=== PATIENT | female | born 1935 | race Caucasian/White ===

== ENCOUNTER 2016-03-27 10:22 | Emergency (ER) | payer OTHER ==
[~2016-03-27 10:22] MED LIST: ALLO100T PO; CALC.25 PO; D31000TA PO; FURO1TAB93 PO; GABA300 PO; HYDR25TA35 PO; LEVO112T2 PO; LISI40TA PO; METO2.5T7 PO; MULT-65 PO; TRAM50 PO; TYLE500T PO; VITA10002 PO; ZOCO40TA PO
[2016-03-27 10:30] VITALS: BP 141/81; PULSE 88; RESP 17; TEMP 97.9; O2SAT 93
[2016-03-27] MEDS ORDERED: DOXY100C PO (10:37)
[2016-03-27] MEDS ORDERED: SIMV40TA PO (10:37)
[2016-03-27] MEDS ORDERED: LEVO112T2 PO (10:37)
[2016-03-27] MEDS ORDERED: TRAM50TA PO (10:37)
[2016-03-27] MEDS ORDERED: FURO1TAB60 PO (10:38)
[2016-03-27] MEDS ORDERED: METO2.5T PO (10:38)
[2016-03-27] MEDS ORDERED: HYDR25TA35 PO (10:38)
[2016-03-27] MEDS ORDERED: GABA300C5 PO (10:38)
[2016-03-27] MEDS ORDERED: AMLO5TAB2 PO (10:38)
[2016-03-27] MEDS ORDERED: ALLO100T PO (10:38)
[2016-03-27] MEDS ORDERED: DEXAMETHASONE SOD PHOS 4 MG/ML VIAL IV PUSH ONE (11:00)
[2016-03-27] MEDS ORDERED: ONDANSETRON HCL 4 MG/2 ML VIAL IV PUSH ONE (11:00)
[2016-03-27] MEDS ORDERED: MORPHINE SULFATE 4 MG/ML INJ IV PUSH ONE ×2 (11:00→13:15)
--- NOTE | 2016-03-27 11:05 | PD ---
HPI Chief Complaint: Pain: Acute or Chronic Time Seen by Provider: 10:50 Travel History International Travel<30 days: No Contact w/Intl Traveler<30days: No Traveled to known affect area: No History of Present Illness HPI The patient is a 80-year-old female who presents to the emergency department for low back pain and pelvis pain after falling. 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 The patient states she fell and landed on her left side. The patient states she was able to get up to her knees, however, was unable to get up and ambulate. Therefore, the fire department was called and they help get the patient up off of the floor. The patient states that she has had some low back pain located over the sacroiliac bilaterally that radiates into the pelvic regions bilaterally after her fall. She also complains of pain that radiates down the right leg to the right knee. She does note intermittent numbness and tingling of the right leg from the hip to the knee which is intermittent. The pain is worse with standing upright and weightbearing, alleviated at rest, but today she states she was unable to ambulate. She does note previous history of surgery on the back by Dr. Cohn. The patient's symptoms are moderate, exacerbated after falling, and minimally alleviated at rest. She denies any head trauma, neck pain, chest pain , short of breath, nausea, vomiting, or abdominal pain. PFSH Past Medical History Cancer: Yes (LYMPH NODES NECK, THYROID) Cardiovascular Problems: No High Cholesterol: Yes Diabetes: No Diminished Hearing: Yes (LEFT EAR) Endocrine: No Gastrointestinal Disorders: Yes (REFLUX) Genitourinary: No Hepatitis: No Hiatal Hernia: Yes Hypertension: Yes Immune Disorder: No Musculoskeletal: Yes (ARTHRITIS) Neurologic: No Psychiatric: No Reproductive: No Respiratory: Yes (COPD) Thyroid Disease: Yes (CANCER) Tetanus Vaccination: < 5 Years Influenza Vaccination: Yes Menopausal: Yes : 4 Para: 4 Miscarriage: 0 : 0 Tubal Ligation: Yes Past Surgical History AICD: No Body Medical Devices: CAGE IN BACK Gynecologic Surgery: Yes (HYSTERECTOMY,) Hysterectomy: Yes Joint Replacement: Yes (RIGHT HIP) Oral Surgery: Yes (THYROIDECTOMY, TONSILS,) Pacemaker: No Tonsillectomy: Yes Other Surgery: Yes ("1985,thyroid and lymph glands removed") Social History Alcohol Use: Yes (2 OZ PER DAY) Tobacco Use: No (quit 2006,was smoking one pack of cigarettes a day) Substance Use: No Allergies-Medications (Allergen,Severity, Reaction): Coded Allergies: Advil (Unverified Allergy, Severe, DIZZYNESS, 03/27/16) Penicillin (Verified Allergy, Severe, HIVES, 03/27/16) Aleve (Verified Adverse Reaction, Severe, DIZZY, 03/27/16) Reported Meds & Prescriptions Reported Meds & Active Scripts Active Reported Hydralazine (Hydralazine HCl) 25 Mg Tab 25 Mg PO BID Take with a meal Metolazone 2.5 Mg Tab 2.5 Mg PO ,,, Gabapentin 300 Mg Cap 300 Mg PO TID Allopurinol 100 Mg Tab 100 Mg PO DAILY Amlodipine (Amlodipine Besylate) 5 Mg Tab 5 Mg PO DAILY Lasix (Furosemide) 40 Mg Tab 40 Mg PO DAILY Simvastatin 40 Mg Tab 40 Mg PO HS Levothyroxine (Levothyroxine Sodium) 112 Mcg Tab 112 Mcg PO DAILY Tramadol (Tramadol HCl) 50 Mg Tab 100 Mg PO Q8HR PRN Doxycycline Hyclate 100 Mg Cap 100 Mg PO BID Review of Systems Except as stated in HPI: all other systems reviewed are Neg HENT: No: Headaches, Neck Pain Cardiovascular: No: Chest Pain or Discomfort Respiratory: No: Shortness of Breath Gastrointestinal: No: Nausea, Vomiting, Abdominal Pain Genitourinary: No: Dysuria Musculoskeletal: Positive: Pain Neurologic: Positive: Paresthesia, Sensory Disturbance, No: Headache, Change in Mentation Physical Exam Narrative GENERAL: Awake, alert, nontoxic-appearing 80-year-old female appears her stated age and is in no acute respiratory distress. SKIN: Warm and dry. HEAD: Atraumatic. Normocephalic. EYES: No injection or drainage. ENT: No nasal bleeding or discharge. Mucous membranes pink and moist. NECK: Trachea midline. No JVD. CARDIOVASCULAR: Regular rate and rhythm. No murmur appreciated. RESPIRATORY: No accessory muscle use. Clear to auscultation. Breath sounds equal bilaterally. GASTROINTESTINAL: Abdomen soft, non-tender, nondistended. Obese, no rebound tenderness. Back: Well-healed scar. Tenderness of the sacroiliac regions bilaterally. MUSCULOSKELETAL: Bilateral lower extremity pitting edema with mild erythema. Superficial ulcerations noted. Positive distal pulses. Plantar flexion dorsiflexion are 5/5 bilaterally. Extension of the knees is 5/5. Flexion of the hips bilaterals 5/5. NEUROLOGICAL: Awake and alert. No obvious cranial nerve deficits. Motor grossly within normal limits. Normal speech. Sensation is intact to lower extremity is bilateral soft touch. PSYCHIATRIC: Appropriate mood and affect; insight and judgment normal. Data Data Last Documented VS Vital Signs Date Time Temp Pulse Resp B/P Pulse Ox O2 Delivery O2 Flow Rate FiO2 03/27/16 10:30 97.9 88 17 141/[address] Lumb Spine W/O Contrast (03/27/16 ) Ct Pelvis W/O Iv Contrast (03/27/16 ) Complete Blood Count With Diff (03/27/16 10:59) Basic Metabolic Panel (Bmp) (03/27/16 10:59) Urinalysis - C+S If Indicated (03/27/16 10:59) Morphine Inj (Morphine Inj) (03/27/16 11:00) Ondansetron Inj (Zofran Inj) (03/27/16 11:00) Dexamethasone Inj (Decadron Inj) (03/27/16 11:00) Morphine Inj (Morphine Inj) (03/27/16 13:15) Labs Laboratory Tests Test 03/27/16 03/27/16 11:23 11:35 White Blood Count 9.3 TH/MM3 Red Blood Count 4.36 MIL/MM3 Hemoglobin 13.2 GM/DL Hematocrit 39.5 % Mean Corpuscular Volume 90.5 FL Mean Corpuscular Hemoglobin 30.3 PG Mean Corpuscular Hemoglobin 33.5 % Concent Red Cell Distribution Width 16.9 % Platelet Count 182 TH/MM3 Mean Platelet Volume 7.5 FL Neutrophils (%) (Auto) 75.8 % Lymphocytes (%) (Auto) 11.5 % Monocytes (%) (Auto) 7.3 % Eosinophils (%) (Auto) 0.5 % Basophils (%) (Auto) 4.9 % Neutrophils # (Auto) 7.0 TH/MM3 Lymphocytes # (Auto) 1.1 TH/MM3 Monocytes # (Auto) 0.7 TH/MM3 Eosinophils # (Auto) 0.0 TH/MM3 Basophils # (Auto) 0.5 TH/MM3 CBC Comment DIFF FINAL Differential Comment Sodium Level 133 MEQ/L Potassium Level 3.0 MEQ/L Chloride Level 86 MEQ/L Carbon Dioxide Level 37.0 MEQ/L Anion Gap 10 MEQ/L Blood Urea Nitrogen 41 MG/DL Creatinine 1.00 MG/DL Estimat Glomerular Filtration 53 ML/MIN Rate Random Glucose 110 MG/DL Calcium Level 9.2 MG/DL Urine Collection Type CLEAN CATCH Urine Color YELLOW Urine Turbidity CLEAR Urine pH 6.5 Urine Specific [place] 1.012 Urine Protein NEG mg/dL Urine Glucose (UA) NEG mg/dL Urine Ketones NEG mg/dL Urine Occult Blood TRACE Urine Nitrite NEG Urine Bilirubin NEG Urine Leukocyte Esterase SMALL Urine RBC 0-3 /hpf Urine WBC 3-5 /hpf Urine Squamous Epithelial 0-5 /hpf Cells Microscopic Urinalysis Comment CULT NOT INDICATED MDM Medical Decision Making Medical Screen Exam Complete: Yes Emergency Medical Condition: Yes Medical Record Reviewed: Yes Interpretation(s) CT the pelvis reveals no fractures are seen CT of the lumbar spine reveals degenerative changes and postsurgical changes with no evidence for fracture. Differential Diagnosis Differential diagnosis includes mechanical fall, fracture, contusion, hematoma, dislocation, pelvic rami fracture, inability to ambulate, chronic leg ulcer. Narrative Course A culture was obtained from leg ulcer at the patient's request, however, she is currently on doxycycline. CT of the lumbar spine and pelvis was ordered to evaluate for underlying fracture with previous surgery performed. 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 CT of the lumbar spine and pelvis are negative for fracture. I had a discussion with the patient , she would prefer to go home if possible because she takes care of her . Therefore, an attempt to ambulate the patient in the emergency department was performed as she states her pain was down to a 2/10 after the morphine. The patient was able to ambulate with the use of a walker, which she has at home. The pain did increase, therefore, she was administered another dose of morphine. The patient has a pain interventionalist, Dr. Bond, and an orthopedist, Dr. Cohn. The patient will be discharged home on Vicodin and Norflex. She is advised to follow-up with her orthopedist and pain interventional was. Return if symptoms worsen or progress. Diagnosis Primary Impression: Chronic back pain Qualified Code: M54.41 - Chronic bilateral low back pain with right-sided sciatica Patient Instructions: General Instructions Additional Instructions: Medications as directed. Follow-up with your pain interventionalist and orthopedist. Return if symptoms worsen or progress. Med/Other Pt SpecificInfo: Prescription(s) given Scripts Orphenadrine ER 12 HR (Orphenadrine CR)100 Mg [id number] Mg PO Q12HR #20 TAB Ref 0 Prov:Romie Jefferson MD 03/27/16 Hydrocodone-Acetaminophen (Daisy)5-325 mg Tab1 Tab PO Q6H PRN (PAIN) #20 TAB Ref 0 Prov:Romie Jefferson MD 03/27/16 Disposition: 01 DISCHARGE HOME Condition: Stable Romie Jefferson MD Mar 27, 2016 11:05
[2016-03-27 11:31] LABS: BASOPHIL # 0.5 TH/MM3 (0-0.2); BASOPHIL % 4.9 % (0.0-2.0); EOSINOPHIL % 0.5 % (0.0-4.0); HEMATOCRIT 39.5 % (35.0-46.0); HEMO FLAGS DIFF FINAL; LYMPH % 11.5 % (9.0-44.0); LYMPHOCYTE # 1.1 TH/MM3 (1.0-4.8); MEAN CELL VOLUME 90.5 FL (80.0-100.0); MEAN CORPUSCULAR HEMOGLOBIN 30.3 PG (27.0-34.0); MEAN CORPUSCULAR HGB CONC 33.5 % (32.0-36.0); MONO % 7.3 % (0.0-8.0); NEUT % 75.8 % (16.0-70.0); PLATELET COUNT 182 TH/MM3 (150-450); RED BLOOD COUNT 4.36 MIL/MM3 (4.00-5.30); RED CELL DISTRIBUTION WIDTH 16.9 % (11.6-17.2); WHITE BLOOD COUNT 9.3 TH/MM3 (4.0-11.0)
[2016-03-27 11:45] LABS: BLOOD, URINE TRACE (NEG); GLUCOSE,URINE NEG (NEG); KETONE, URINE NEG (NEG); NITRITE,URINE NEG (NEG); PH, URINE 6.5 (5.0-8.5)
[2016-03-27 11:52] LABS: METHOD OF COLLECTION CLEAN CATCH; RBC, URINE 0-3 /hpf (0-3); URINE COLOR YELLOW (YELLW/STRAW)
[2016-03-27 11:53] LABS: COMMENT (UR) CULT NOT INDICATED; CULTURE IF INDICATED CULT NOT INDICATED; SQUAMOUS EPITHELIAL CELL URINE 0-5 /hpf (0-5)
--- NOTE | 2016-03-27 12:43 | RADHPO ---
EXAM DATE/TIME: 03/27/2016 12:09 [facility] COMPARISON: No previous studies available for comparison. INDICATIONS : Fell one week ago. Has excerbation of her chronic lower back pain and bilateral hip pain. RADIATION DOSE: 40.29 CTDIvol (mGy) MEDICAL HISTORY : Hypertension. Thyroid cancer. SURGICAL HISTORY : Thyroidectomy. Hysterectomy.Orthopedic surgery. ENCOUNTER: Initial ACUITY: 1 week PAIN SCALE: 5/10 LOCATION: lumbar TECHNIQUE: Volumetric scanning of the lumbar spine was performed. Multiplanar reconstructions in the sagittal, coronal and oblique axial planes were performed. Using automated exposure control and adjustment of the mA and/or kV according to patient size, radiation dose was kept as low as reasonably achievable t o obtain optimal diagnostic quality images. FINDINGS: The patient has had previous posterior laly and transpedicular screw fixation at L3 and L4. Grade 1 an terolisthesis of L4 on L5 with moderate disc space narrowing at L4-5 and severe disc space narrowing with vacuum disc phenomenon at L2-3 and multilevel osteophyte formation greatest at L2 and L3. Modera te multilevel facet hypertrophic changes are noted. Dense atherosclerotic calcification of the aorta and iliac vessels. Moderate levoscoliosis of the lumbar spine centered at L1-2. No fractures are seen . Mild canal stenosis is noted at L2-3. There is an adenoma of the right adrenal gland measuring 2.6 cm. CONCLUSION: Degenerative changes and postsurgical changes with no evidence for fracture. Aamir Alvarez MD on March 27, 2016 at 12:39 Board Certified Radiologist. This report was verified electronically.
--- NOTE | 2016-03-27 12:47 | RADHPO ---
EXAM DATE/TIME: 03/27/2016 12:09 [facility] COMPARISON: No previous studies available for comparison. INDICATIONS : Fell one week ago. Has excerbation of her chronic lower back pain and bilateral hip pain. ORAL CONTRAST: No oral contrast ingested. RADIATION DOSE: 31.02 CTDIvol (mGy) MEDICAL HISTORY : Hypertension. Thyroid cancer. SURGICAL HISTORY : Thyroidectomy. Hysterectomy.Orthopedic surgery. ENCOUNTER: Initial ACUITY: 1 week PAIN SCALE: 5/10 LOCATION: Bilateral pelvis TECHNIQUE: Volumetric scanning of the pelvis was performed. Using automated exposure control and adjustment of the mA and/or kV according to patient size, radiation dose was kept as low as reasonably achievable t o obtain optimal diagnostic quality images. FINDINGS: Right hip arthroplasty. There is diverticulosis of the sigmoid colon and a fat containing umbilical h ernia. Atherosclerotic calcifications of the aortoiliac vessels are seen. There are degenerative crump ges of the spine and postsurgical changes involving the lower lumbar spine. CONCLUSION: No fractures are seen. Aamir Alvarez MD on March 27, 2016 at 12:42 Board Certified Radiologist. This report was verified electronically.
[2016-03-27] MEDS ORDERED: ORPH100T99 PO (13:11)
[2016-03-27] MEDS ORDERED: NORC5TAB PO (13:11)
[2016-03-27 13:29] VITALS: BP 112/67; PULSE 89; RESP 17; O2SAT 92
== END 2016-03-27 13:45 | disposition home or self-care (01) ==
LOC: PHED 10:22
DX: M54.41 Lumbago with sciatica, right side (principal); G89.29 Other chronic pain; W19.XXXA Unspecified fall, initial encounter; Y93.F9 Activity, other caregiving
CPT/HCPCS: 72131; 72192; 80048; 81001; 85025; 96374; 96375; 96376; 99284; J1100; J2270; J2405

== ENCOUNTER 2016-04-02 12:14 | Observation (INO) | payer OTHER ==
[~2016-04-02] VITALS: Ht 157.5 cm; Wt 88.9 kg
[~2016-04-02 12:14] MED LIST changes: +AMLO5TAB2 PO; -CALC.25 PO; -D31000TA PO; +DOXY100C PO; +FURO1TAB60 PO; -FURO1TAB93 PO; -GABA300 PO; +GABA300C5 PO; -LISI40TA PO; +METO2.5T PO; -METO2.5T7 PO; -MULT-65 PO; +NORC5TAB PO; +ORPH100T99 PO; +SIMV40TA PO; -TRAM50 PO; +TRAM50TA PO; -TYLE500T PO; -VITA10002 PO; -ZOCO40TA PO
[2016-04-02 12:15] VITALS: BP 122/92; PULSE 92; RESP 20; TEMP 97.8; O2SAT 92
[2016-04-02] MEDS ORDERED: SODIUM CHLOR 0.9% 1000 ML INJ 1,000 ML IV SCH (13:00)
--- NOTE | 2016-04-02 13:21 | PD ---
HPI Chief Complaint: General Weakness Time Seen by Provider: 12:24 Travel History International Travel<30 days: No Contact w/Intl Traveler<30days: No Traveled to known affect area: No History of Present Illness HPI Is an 80 year-old woman who presents emergency department complaining of multiple complaints. She complains of pain and redness in her legs. She has some chronic wound there that it more infected recently. She started a course of doxycycline and has completed about 7 or 8 days with minimal improvement. She complains that she is feeling too weak to walk. She feels shaky. She feels dehydrated. She states is been ongoing for quite some time, "it's been so long". 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 Closest adult children are in [place]. History Past Medical History Narrative Medical COPD Hyperlipidemia Hypertension History of thyroid cancer Tetanus Vaccination: < 5 Years Influenza Vaccination: Yes Menopausal: Yes : 4 Para: 4 Social History Alcohol Use: Yes (2 OZ PER DAY) Tobacco Use: No (quit 2006,was smoking one pack of cigarettes a day) Allergies-Medications (Allergen,Severity, Reaction): Coded Allergies: Advil (Unverified Allergy, Severe, DIZZYNESS, 04/02/16) Penicillin (Verified Allergy, Severe, HIVES, 04/02/16) Aleve (Verified Adverse Reaction, Severe, DIZZY, 04/02/16) Reported Meds & Prescriptions Reported Meds & Active Scripts Active Orphenadrine CR (Orphenadrine Citrate) 100 Mg Tab 100 Mg PO Q12HR [place] (Hydrocodone-Acetaminophen) 5-325 mg Tab 1 Tab PO Q6H PRN Reported Hydralazine (Hydralazine HCl) 25 Mg Tab 25 Mg PO BID Take with a meal Metolazone 2.5 Mg Tab 2.5 Mg PO ,, Gabapentin 300 Mg Cap 300 Mg PO TID Allopurinol 100 Mg Tab 100 Mg PO DAILY Amlodipine (Amlodipine Besylate) 5 Mg Tab 5 Mg PO DAILY Lasix (Furosemide) 40 Mg Tab 40 Mg PO DAILY Simvastatin 40 Mg Tab 40 Mg PO HS Levothyroxine (Levothyroxine Sodium) 112 Mcg Tab 112 Mcg PO DAILY Tramadol (Tramadol HCl) 50 Mg Tab 100 Mg PO Q8HR PRN Doxycycline Hyclate 100 Mg Cap 100 Mg PO BID Review of Systems Except as stated in HPI: all other systems reviewed are Neg Physical Exam Narrative GENERAL: Well-appearing 80 year-old woman, appears exhausted. SKIN: Warm and dry. Decreased skin turgor. NECK: Trachea midline. No JVD. CARDIOVASCULAR: Regular rate and rhythm. No murmur appreciated. RESPIRATORY: No accessory muscle use. Clear to auscultation. Breath sounds equal bilaterally. GASTROINTESTINAL: Abdomen soft, non-tender, nondistended. Hepatic and splenic margins not palpable. MUSCULOSKELETAL: No obvious deformities. Some edema both lower extremities. The right leg in particular is erythema redness surrounding the catheter in the chronic appearing wound in the back. There is also some left leg erythema and redness. NEUROLOGICAL: Awake and alert. No obvious cranial nerve deficits. Motor grossly within normal limits. Normal speech. PSYCHIATRIC: Appropriate mood and affect; insight and judgment normal. Data Data Last Documented VS Vital Signs Date Time Temp Pulse Resp B/P Pulse Ox O2 Delivery O2 Flow Rate FiO2 04/02/16 13:53 68 18 135/52 94 Room Air 04/02/16 12:15 97.8 Orders Complete Blood Count With Diff (04/02/16 12:56) Comprehensive Metabolic Panel (04/02/16 12:56) Urinalysis - C+S If Indicated (04/02/16 12:56) Troponin I (04/02/16 12:56) Iv Access Insert/Monitor (04/02/16 12:56) [place] Sedimentation Rate (04/02/16 12:56) C-Reactive Protein (Crp) (04/02/16 12:56) Sodium Chlor 0.9% 1000 Ml Inj (Ns 1000 M (04/02/16 13:00) Lactic Acid (04/02/16 14:04) Blood Culture (04/02/16 14:04) Clindamycin Inj (Cleocin Inj) (04/02/16 14:30) Admit Order (Ed Use Only) (04/02/16 ) Place In Observation (04/02/16 ) Vital Signs (Adult) Q4H (04/02/16 14:24) Activity Oob With Assistance (04/02/16 14:24) Intake + Output BORIS.QSHIFT (04/02/16 14:24) Diet Heart Healthy (04/02/16 Dinner) Sodium Chloride 0.9% Flush (Ns Flush) (04/02/16 14:30) Sodium Chloride 0.9% Flush (Ns Flush) (04/02/16 21:00) Acetaminophen (Tylenol) (04/02/16 14:30) Ondansetron Inj (Zofran Inj) (04/02/16 14:30) Docusate Sodium (Colace) (04/02/16 14:30) Magnesium Hydroxide Liq (Milk Of Magnesi (04/02/16 14:30) Basic Metabolic Panel (Bmp) (04/03/16 06:00) Complete Blood Count With Diff (04/03/16 06:00) Pt Request For Service (04/02/16 14:24) Enoxaparin Inj (Lovenox Inj) (04/02/16 14:30) Naloxone Inj (Narcan Inj) (04/02/16 14:30) Clindamycin Inj (Cleocin Inj) (04/02/16 19:00) Labs Laboratory Tests Test 04/02/16 04/02/16 13:00 13:16 Urine Collection Type CLEAN CATCH Urine Color YELLOW Urine Turbidity CLEAR Urine pH 8.0 Urine Specific [place] 1.006 Urine Protein NEG mg/dL Urine Glucose (UA) NEG mg/dL Urine Ketones NEG mg/dL Urine Occult Blood NEG Urine Nitrite NEG Urine Bilirubin NEG Urine Leukocyte Esterase SMALL Urine WBC 0-2 /hpf Urine Squamous Epithelial 0-5 /hpf Cells Microscopic Urinalysis Comment CULT NOT INDICATED White Blood Count 22.4 TH/MM3 Red Blood Count 5.12 MIL/MM3 Hemoglobin 15.0 GM/DL Hematocrit 47.2 % Mean Corpuscular Volume 92.2 FL Mean Corpuscular Hemoglobin 29.4 PG Mean Corpuscular Hemoglobin 31.9 % Concent Red Cell Distribution Width 17.8 % Platelet Count 120 TH/MM3 Mean Platelet Volume 8.7 FL CBC Comment AUTO DIFF Differential Total Cells 100 Counted Neutrophils % (Manual) 87 % Lymphocytes % 10 % Monocytes % 3 % Neutrophils # (Manual) 19.5 TH/MM3 Differential Comment FINAL DIFF MANUAL Erythrocyte Sedimentation Rate 19 mm/hr Sodium Level 134 MEQ/L Potassium Level 4.6 MEQ/L Chloride Level 93 MEQ/L Carbon Dioxide Level 28.4 MEQ/L Anion Gap 13 MEQ/L Blood Urea Nitrogen 17 MG/DL Creatinine 0.81 MG/DL Estimat Glomerular Filtration 68 ML/MIN Rate Random Glucose 94 MG/DL Calcium Level 9.2 MG/DL Total Bilirubin 1.0 MG/DL Aspartate Amino Transf 69 U/L (AST/SGOT) Alanine Aminotransferase 17 U/L (ALT/SGPT) Alkaline Phosphatase 124 U/L Troponin I LESS THAN 0.02 NG/ML Total Protein 7.6 GM/DL Albumin 2.7 GM/DL [facility] Medical Decision Making Medical Screen Exam Complete: Yes Emergency Medical Condition: Yes Interpretation(s) LABS: CBC remarkable for leukocytosis Sedimentation rate 19 CRP with diminished GFR Troponin negative Differential Diagnosis Lower extremity cellulitis, lymphedema, infection, dehydration, other Narrative Course Medical decision making INITIAL: Is an 80 year-old woman who presents to the emergency department multiple complaints, primarily she has worsening lower extremity infection, she does not 9 days of doxycycline with minimal improvement. She is a history of MRSA. She also appears generally exhausted from taking care of her . This may represent some generalized process such as sepsis or infection anemia or dehydration. She had labs just recently in the emergency department. During the process of trying to place her in a memory care unit. We'll check labs, urine, reassess. We'll give IV fluid hydration and she appears clinically dehydrated. FINAL: 80 year-old woman, leukocytosis of worsening leg infection despite outpatient oral antibiotics. Also appears clinically dehydrated and is continuing to take her metallic zone. Leukocytosis possibly from dehydration, possibly from worsening infection. Doubt sepsis. We'll get blood cultures, IV antibiotics, admit for observation. Diagnosis Primary Impression: Bilateral lower leg cellulitis Bobby Bernal MD Apr 02, 2016 13:21
[2016-04-02 13:31] LABS: HEMATOCRIT 47.2 % (35.0-46.0); HEMO FLAGS AUTO DIFF; MEAN CELL VOLUME 92.2 FL (80.0-100.0); MEAN CORPUSCULAR HEMOGLOBIN 29.4 PG (27.0-34.0); MEAN CORPUSCULAR HGB CONC 31.9 % (32.0-36.0); PLATELET COUNT 120 TH/MM3 (150-450); RED BLOOD COUNT 5.12 MIL/MM3 (4.00-5.30); RED CELL DISTRIBUTION WIDTH 17.8 % (11.6-17.2); WHITE BLOOD COUNT 22.4 TH/MM3 (4.0-11.0)
[2016-04-02 13:38] LABS: BLOOD, URINE NEG (NEG); GLUCOSE,URINE NEG (NEG); KETONE, URINE NEG (NEG); NITRITE,URINE NEG (NEG)
[2016-04-02 13:39] LABS: CHLORIDE 93 MEQ/L (98-107); SODIUM (NA) 134 MEQ/L (136-145)
[2016-04-02 13:39] LABS: METHOD OF COLLECTION CLEAN CATCH; URINE COLOR YELLOW (YELLW/STRAW)
[2016-04-02 13:42] LABS: COMMENT (UR) CULT NOT INDICATED; CULTURE IF INDICATED CULT NOT INDICATED; SQUAMOUS EPITHELIAL CELL URINE 0-5 /hpf (0-5); WBC, URINE 0-2 /hpf (0-5)
[2016-04-02 13:42] LABS: ANION GAP 13 MEQ/L (5-15); BICARBONATE 28.4 MEQ/L (21.0-32.0)
[2016-04-02 13:43] LABS: BLOOD UREA NITROGEN 17 MG/DL (7-18)
[2016-04-02 13:46] LABS: ALT (GPT) 17 U/L (10-53); AST (GOT) 69 U/L (15-37); GLOMERULAR FILTRATION RATE 68 ML/MIN (>89); NEUTROPHIL # MANUAL DIFF 19.5 TH/MM3 (1.8-7.7); POLYS (SEG NEUTROPHILS) 87 % (16-70); SCAN/DIFF FINAL DIFF MANUAL; WBC DIFF SAMPLE 100
[2016-04-02 13:49] LABS: ALKALINE PHOSPHATASE 124 U/L (45-117); POTASSIUM 4.6 MEQ/L (3.5-5.1)
[2016-04-02 13:50] VITALS: BP 137/75; PULSE 88; RESP 20; O2SAT 96
[2016-04-02 13:53] VITALS: BP 135/52; PULSE 68; RESP 18; O2SAT 94
[2016-04-02] MEDS ORDERED: NALOXONE HCL 0.4 MG/ML AMP IV PRN (14:30)
[2016-04-02] MEDS ORDERED: SODIUM CHLORIDE 0.9% FLUSH 5 ML FLUSH FLUSH PRN (14:30)
[2016-04-02] MEDS ORDERED: CLINDAMYCIN INJ 600 MG in SODIUM CHLORIDE 0.9% INJ 100 ML IV ONE (14:30)
[2016-04-02] MEDS: DOCUSATE SODIUM 100 MG CAP PO SCH ×2 (14:54→22:34)
[2016-04-02] MEDS ORDERED: MAGNESIUM HYDROXIDE SUSP 30 ML CUP PO PRN (15:00)
[2016-04-02] MEDS ORDERED: ACETAMINOPHEN 325 MG TAB PO PRN (15:00)
[2016-04-02] MEDS ORDERED: ENOXAPARIN SODIUM 40 MG/0.4 ML SYRINGE SQ SCH (15:00)
[2016-04-02] MEDS ORDERED: ONDANSETRON HCL 4 MG/2 ML VIAL IVP PRN (15:00)
[2016-04-02 15:21] VITALS: BP 132/76; PULSE 93; RESP 20; O2SAT 94
[2016-04-02 16:00] VITALS: BP 142/86; PULSE 92; RESP 20; TEMP 98.7; O2SAT 94
--- NOTE | 2016-04-02 17:41 | HHI.HP ---
[facility] Rachna Higgins MD Admission Diagnosis lower extremity cellulitis, dehydration Diagnoses: Travel History International Travel<30 Days: No Contact w/Intl Traveler <30 Da: No Traveled to Known Affected Are: No History of Present Illness This is a pleasant 80 year-old female with past medical history of hypertension, and chronic venous stasis edema of the bilateral lower extremities. 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 The patient states that over the past several weeks she had increased edema of the lower extremities. She was taking diuretic prescribed by her primary care physician. She was unable to place the PANCHITO hose herself. She noticed that she was starting to develop an ulcer on the back of both calves. She then on her own took some doxycycline that she had left over from a previous infection. The patient states that today she just feels very shaky and weak and so she came into the emergency department. She does endorse some low-grade fevers but did not take her temperature. In the emergency department she was found to have elevation of BUN and leukocytosis. I was requested to observe her overnight for right lower extremity cellulitis. The patient's main complaint at this time is not being able to sleep for the past 2- 3 days and she requests a sleeping pill. Review of Systems Constitutional: COMPLAINS OF: Fever, Chills Ears, nose, mouth, throat: DENIES: Throat pain, Hoarseness Respiratory: DENIES: Wheezing, Shortness of breath Cardiovascular: COMPLAINS OF: Dyspnea on Exertion, DENIES: Chest pain, Palpitations Gastrointestinal: DENIES: Abdominal pain, Vomiting Genitourinary: DENIES: Urgency, Dysuria Musculoskeletal: COMPLAINS OF: Back pain Integumentary: DENIES: Rash Neurologic: DENIES: Localized weakness, Paresthesias Psychiatric: DENIES: Anxiety, Confusion Past Family Social History Past Medical History Hypertension Hyperlipidemia Gout Hypothyroidism COPD Chronic low back pain Chronic pedal edema Reported Medications Allergies Coded Allergies Type Severity Reaction Last Updated Verified Advil Allergy Severe DIZZYNESS 04/02/16 No Penicillin Allergy Severe HIVES 04/02/16 Yes Aleve Adverse Reaction Severe DIZZY 04/02/16 Yes Active Scripts Medications Dose Route/Sig Days Date Category Dose Instructions Orphenadrine CR (Orphenadrine Citrate) 100 Mg Tab 100 Mg PO Q12HR 03/27/16 Rx [place] (Hydrocodone-Acetaminophen) 5-325 mg Tab 1 Tab PO Q6H PRN 03/27/16 Rx Hydralazine (Hydralazine HCl) 25 Mg Tab 25 Mg PO BID 03/27/16 Reported Take with a meal Metolazone 2.5 Mg Tab 2.5 Mg PO T,TH,SA,MICHELLE 03/27/16 Reported Gabapentin 300 Mg Cap 300 Mg PO TID 03/27/16 Reported Allopurinol 100 Mg Tab 100 Mg PO DAILY 03/27/16 Reported Amlodipine (Amlodipine Besylate) 5 Mg Tab 5 Mg PO DAILY 03/27/16 Reported Lasix (Furosemide) 40 Mg Tab 40 Mg PO DAILY 03/27/16 Reported Simvastatin 40 Mg Tab 40 Mg PO HS 03/27/16 Reported Levothyroxine (Levothyroxine Sodium) 112 Mcg Tab 112 Mcg PO DAILY 03/27/16 Reported Tramadol (Tramadol HCl) 50 Mg Tab 100 Mg PO Q8HR PRN 03/27/16 Reported Doxycycline Hyclate 100 Mg Cap 100 Mg PO BID 03/27/16 Reported Allergies: Coded Allergies: Advil (Unverified Allergy, Severe, DIZZYNESS, 04/02/16) Penicillin (Verified Allergy, Severe, HIVES, 04/02/16) Aleve (Verified Adverse Reaction, Severe, DIZZY, 04/02/16) Family History Reviewed and noncontributory Social History [id number] tobacco use. Physical Exam Vital Signs Vital Signs Date Time Temp Pulse Resp B/P Pulse Ox O2 Delivery O2 Flow Rate FiO2 04/02/16 16:00 98.7 92 20 142/86 94 04/02/16 15:21 93 20 132/76 94 Room Air 04/02/16 13:53 68 18 135/52 94 Room Air 04/02/16 13:50 88 20 137/75 96 Room Air 04/02/16 12:45 90 97 Room Air 04/02/16 12:15 97.8 92 20 122/92 92 Physical Exam GENERAL: Well-nourished, well-developed pleasant obese elderly female patient. SKIN: Warm and dry. HEAD: Normocephalic. EYES: No scleral icterus. No injection or drainage. NECK: Supple, trachea midline. No JVD or lymphadenopathy. CARDIOVASCULAR: Regular rate and rhythm without murmurs, gallops, or rubs. RESPIRATORY: Breath sounds equal bilaterally. No accessory muscle use on room air. GASTROINTESTINAL: Abdomen soft, non-tender, nondistended. EXTREMITIES: Chronic 1+ pedal edema. She has a shallow 2 x 2 centimeter venous stasis ulcer on the posterior mid right calf and a smaller shallow venous stasis ulcer on the posterior upper left calf on the right. Good dorsalis pedis pulses. NEUROLOGICAL: Awake, alert, and oriented x 3. Non-focal. Laboratory Laboratory Tests Test 04/02/16 04/02/16 04/02/16 13:00 13:16 14:34 Urine Collection Type CLEAN CATCH Urine Color YELLOW Urine Turbidity CLEAR Urine pH 8.0 Urine Specific [place] 1.006 Urine Protein NEG Urine Glucose (UA) NEG Urine Ketones NEG Urine Occult Blood NEG Urine Nitrite NEG Urine Bilirubin NEG Urine Leukocyte Esterase SMALL Urine WBC 0-2 Urine Squamous Epithelial 0-5 Cells Microscopic Urinalysis Comment CULT NOT INDICATED White Blood Count 22.4 Red Blood Count 5.12 Hemoglobin 15.0 Hematocrit 47.2 Mean Corpuscular Volume 92.2 Mean Corpuscular Hemoglobin 29.4 Mean Corpuscular Hemoglobin 31.9 Concent Red Cell Distribution Width 17.8 Platelet Count 120 Mean Platelet Volume 8.7 CBC Comment AUTO DIFF Differential Total Cells 100 Counted Neutrophils % (Manual) 87 Lymphocytes % 10 Monocytes % 3 Neutrophils # (Manual) 19.5 Differential Comment FINAL DIFF MANUAL Erythrocyte Sedimentation Rate 19 Sodium Level 134 Potassium Level 4.6 Chloride Level 93 Carbon Dioxide Level 28.4 Anion Gap 13 Blood Urea Nitrogen 17 Creatinine 0.81 Estimat Glomerular Filtration 68 Rate Random Glucose 94 Calcium Level 9.2 Total Bilirubin 1.0 Aspartate Amino Transf 69 (AST/SGOT) Alanine Aminotransferase 17 (ALT/SGPT) Alkaline Phosphatase 124 Troponin I LESS THAN 0.02 C-Reactive Protein 7.71 Total Protein 7.6 Albumin 2.7 Lactic Acid Level 1.4 Date/Time Procedure Status Source Growth 04/02/16 14:35 Aerobic Blood Culture Received Blood Peripheral Pending 04/02/16 14:35 Anaerobic Blood Culture Received Blood Peripheral Pending Result Diagram: 04/02/16 1316 04/02/16 1316 Assessment and Plan Assessment and Plan -Right lower extremity cellulitis, with venous stasis ulcers bilaterally. Had been on doxycycline as an outpatient. Will place on clindamycin and observe overnight. Will apply dressings to the venous stasis ulcers and secured with Senthil wrap, apply PANCHITO hose and recommended elevation of the legs. The patient appears to have diuresed well as she has wrinkling of the skin of lower Jose' s bilaterally and elevated BUN SL hold off on Lasix for now. -Generalized weakness. We'll consult physical therapy. -Insomnia. The patient complains of insomnia over the past 2-3 days and requests a sleeping pill. Will prescribe Restoril. -Hypertension - hold Norvasc due to association with pedal edema, continue hydralazine -Hyperlipidemia - continue statin -Gout - continue allopurinol -Hypothyroidism - continue Synthroid -COPD - no acute exacerbation -Chronic low back pain - resume home pain medications. -DVT prophylaxis with LovenoEnedelia Vogt MD Apr 02, 2016 17:41
[2016-04-02] MEDS ORDERED: ACETAMINOPHEN/HYDROcodone 325 MG/5 MG TAB PO PRN (17:45)
[2016-04-02] MEDS ORDERED: traMADol HCL 50 MG TAB PO PRN (17:45)
[2016-04-02] MEDS: GABAPENTIN 300 MG CAP PO SCH (18:05)
[2016-04-02 20:00] VITALS: BP 143/81; PULSE 93; PULSE 94; RESP 20; TEMP 98.4; O2SAT 93
[2016-04-02] MEDS ORDERED: TEMAZEPAM 15 MG CAP PO SCH (21:00)
[2016-04-02] MEDS ORDERED: PRAVASTATIN SOD 40 MG TAB PO SCH (21:00)
[2016-04-02] MEDS: hydrALAZINE HCL 25 MG TAB PO SCH (22:33)
[2016-04-02] MEDS: SODIUM CHLORIDE 0.9% FLUSH 5 ML FLUSH FLUSH SCH (22:34)
[2016-04-02] MEDS: ORPHENADRINE CITRATE 100 MG SUSTAINED RELEASE TAB PO SCH (22:34)
[2016-04-02] MEDS: CLINDAMYCIN INJ 600 MG in SODIUM CHLORIDE 0.9% INJ 100 ML IV SCH (22:46)
[2016-04-03] VITALS: BP 127/73; PULSE 90; RESP 20; TEMP 97; O2SAT 92
[2016-04-03 04:00] VITALS: BP 120/83; PULSE 92; RESP 20; TEMP 97.1; O2SAT 92
[2016-04-03] MEDS: CLINDAMYCIN INJ 600 MG in SODIUM CHLORIDE 0.9% INJ 100 ML IV SCH (06:03)
[2016-04-03 06:17] LABS: BICARBONATE 29.6 MEQ/L (21.0-32.0); POTASSIUM 3.3 MEQ/L (3.5-5.1)
[2016-04-03 07:44] LABS: HEMATOCRIT 37.7 % (35.0-46.0); MEAN CELL VOLUME 91.4 FL (80.0-100.0); RED BLOOD COUNT 4.13 MIL/MM3 (4.00-5.30); RED CELL DISTRIBUTION WIDTH 17.3 % (11.6-17.2); WHITE BLOOD COUNT 8.5 TH/MM3 (4.0-11.0)
[2016-04-03 08:00] VITALS: BP 136/72; PULSE 94; RESP 18; TEMP 99.4; O2SAT 91
[2016-04-03 08:26] LABS: HEMO FLAGS AUTO DIFF; PLATELET COUNT 300 TH/MM3 (150-450)
[2016-04-03 08:30] LABS: BANDS 1 % (0-6); EOSINOPHILS 2 % (0-4); NEUTROPHIL # MANUAL DIFF 6.9 TH/MM3 (1.8-7.7); POLYS (SEG NEUTROPHILS) 80 % (16-70); WBC DIFF SAMPLE 100
[2016-04-03 08:31] LABS: PLATELET ESTIMATE SMEAR NORMAL (NORMAL); PLATELET MORPHOLOGY NORMAL (NORMAL); SCAN/DIFF FINAL DIFF MANUAL
[2016-04-03] MEDS ORDERED: ALLOPURINOL 100 MG TAB PO SCH (09:00)
[2016-04-03] MEDS ORDERED: GABAPENTIN 400 MG CAP PO SCH (09:00)
[2016-04-03] MEDS: ORPHENADRINE CITRATE 100 MG SUSTAINED RELEASE TAB PO SCH (09:00)
[2016-04-03] MEDS ORDERED: LEVOTHYROXINE SODIUM 112 MCG TAB PO SCH (09:00)
--- NOTE | 2016-04-03 10:05 | HHI.PR ---
Subjective Remarks Patient is examined today with Dr. Grijalva. Patient states that she is feeling much improved. This is the first time she ate real meal since Sunday. Patient no longer meet septic criteria. Physical therapy has evaluated the patient and recommending PT at rehabilitation or PT at home with home health care. Objective Vitals Vital Signs Date Time Temp Pulse Resp B/P Pulse Ox O2 Delivery O2 Flow Rate FiO2 04/03/16 08:00 99.4 94 18 136/72 91 04/03/16 04:00 97.1 92 20 120/83 92 04/03/16 00:00 97.0 90 20 127/73 92 04/02/16 20:00 98.4 94 20 143/81 93 04/02/16 20:00 93 04/02/16 16:00 98.7 92 20 142/86 94 04/02/16 15:21 93 20 132/76 94 Room Air 04/02/16 13:53 68 18 135/52 94 Room Air 04/02/16 13:50 88 20 137/75 96 Room Air 04/02/16 12:45 90 97 Room Air 04/02/16 12:15 97.8 92 20 122/92 92 I/O 04/02/16 04/02/16 04/02/16 04/03/16 04/03/16 04/03/16 07:00 15:00 23:00 07:00 15:00 23:00 Intake Total 1000 ml 160 ml 60 ml Output Total 750 ml Balance 1000 ml 160 ml -690 ml Intake Oral 60 ml 60 ml IV Total 1000 ml 100 ml Output Urine Total 750 ml # Voids 2 3 # Bowel Movements 0 0 Result Diagram: 04/03/16 0730 04/03/16 0520 Objective Remarks GENERAL: Well-developed, well-nourished, in no acute distress. alert and orientated HEENT: Head is normocephalic without any lesions or masses noted. Facial features are symmetric. Eyes: Extraocular muscles are intact. Conjunctivae were clear. NECK: Supple without any masses. Trachea midline no deviation. No JVD, CARDIAC: Regular rhythm, regular rate. S1/S2 are heard. No murmurs gallops or rubs. LUNGS: Clear to auscultation bilaterally. No wheeze, rhonchi or rales. No use of accessory muscles on inspiration or expiration. ABDOMEN: Soft, nontender. Nondistended. Bowel sounds heard in all 4 quadrants. No organomegaly or masses. Negative rebound, negative guarding EXTREMITIES: No edema, pulses are equal bilaterally. No cyanosis or clubbing. Obviously no lower extremity edema. No significant erythema or cellulitis. Chronic venous stasis wounds are covered with bandages at this time. NEUROLOGY: Mood and affect appear appropriate. Cranial nerves II through XII grossly intact. Moving all extremities, speech is clear Urinary Catheter: No Vascular Central Line Catheter: No A/P Assessment and Plan -Right lower extremity cellulitis, with venous stasis ulcers bilaterally. Had been on doxycycline as an outpatient. Will place on clindamycin and observe overnight. Will apply dressings to the venous stasis ulcers and secured with Senthil wrap, apply PANCHITO hose and recommended elevation of the legs. The patient appears to have diuresed well as she has wrinkling of the skin of lower extremities bilaterally and elevated BUN SL hold off on Lasix for now. -Generalized weakness. Physical therapy evaluated patient and recommending PT rehabilitation versus home with home health care. -Insomnia. The patient complains of insomnia over the past 2-3 days and requests a sleeping pill. Continue Restoril. -Hypertension - hold Norvasc due to association with pedal edema, continue hydralazine -Hyperlipidemia - continue statin -Gout - continue allopurinol -Hypothyroidism - continue Synthroid -COPD - no acute exacerbation -Chronic low back pain - resume home pain medications. -DVT prophylaxis with Lovenox Written by Lauri Sultana PA-C, acting as scribe for Dr. Grijalva on 04/03/16 at 12:15. The documentation accurately reflects the work and decisions performed face-to- face by Dr. Grijalva on 04/03/16 at 12:15. Discharge Planning Discharge home in stable condition with home health care and physical therapy Activity: Ad sugey. Diet: Healthy heart diet Follow-up primary medical doctor one week Lauri Sultana Apr 03, 2016 10:05
[2016-04-03] MEDS: SODIUM CHLORIDE 0.9% FLUSH 5 ML FLUSH FLUSH SCH (10:08)
[2016-04-03] MEDS ORDERED: CLIN1CAP5 PO (10:09)
[2016-04-03] MEDS: GABAPENTIN 300 MG CAP PO SCH ×2 (10:09→13:00)
[2016-04-03] MEDS: hydrALAZINE HCL 25 MG TAB PO SCH (10:09)
[2016-04-03] MEDS: DOCUSATE SODIUM 100 MG CAP PO SCH (10:09)
--- NOTE | 2016-04-03 10:10 | HHI.FF ---
Face to Face Verification Diagnosis: (1) Chronic back pain (2) Bilateral lower leg cellulitis Physical Therapy Order: Evaluate and Treat, Improve ambulation, Strength and gait training Home Health Nursing Order: Medical education Signs/symptoms of disease process Wound care and dressing changes Nursing assessment with vital signs I have seen patient Charlotte Bettencourt on 04/03/16. My clinical findings support the need for the requested home health care services because: Deconditioned w/ increased weakness I certify that my clinical findings support that this patient is homebound because: Unsteady gait/balance Lauri Sultana Apr 03, 2016 10:09
--- NOTE | 2016-04-03 10:13 | HHI.DCPOC ---
Discharge Care Plan Diagnosis: (1) Bilateral lower leg cellulitis Goals to Promote Your Health * To prevent worsening of your condition and complications * To maintain your health at the optimal level Directions to Meet Your Goals Take your medications as prescribed Follow your dietary instruction Follow activity as directed Keep your appointments as scheduled Take your immunizations and boosters as scheduled If your symptoms worsen call your PCP, if no PCP go to Urgent Care Center or Emergency Room Smoking is Dangerous to Your Health. Avoid second hand smoke Call the 24-hour hour crisis hotline for domestic abuse at Lauri Sultana Apr 03, 2016 10:13
[2016-04-03 12:00] VITALS: BP 128/78; PULSE 96; RESP 20; TEMP 98; O2SAT 92
== END 2016-04-03 15:47 | disposition home or self-care (01) ==
LOC: PHED 12:14 → PHEDA 14:27 → PH3A 15:58
PROVIDERS: ADMIT Family Medicine; ATTEND Family Medicine
DX: L03.115 Cellulitis of right lower limb (principal); L03.116 Cellulitis of left lower limb; I83.009 Varicose veins of unspecified lower extremity with ulcer of unspecified site; L97.909 Non-pressure chronic ulcer of unspecified part of unspecified lower leg with unspecified severity; E86.0 Dehydration; R60.0 Localized edema; M54.5 Low back pain; G89.29 Other chronic pain; I10 Essential (primary) hypertension; E78.5 Hyperlipidemia, unspecified; E03.9 Hypothyroidism, unspecified; J44.9 Chronic obstructive pulmonary disease, unspecified; I87.8 Other specified disorders of veins; G47.00 Insomnia, unspecified; M10.9 Gout, unspecified; Z72.0 Tobacco use; Z85.850 Personal history of malignant neoplasm of thyroid; Z86.14 Personal history of Methicillin resistant Staphylococcus aureus infection
CPT/HCPCS: 80048; 80053; 81001; 82948; 83605; 84484; 85007; 85027; 85652; 86140; 87040; 97162; 99285; G0378; G8987; G8988; J1650; J7030

== ENCOUNTER 2016-04-29 10:49 | Observation (INO) | payer OTHER ==
[~2016-04-29] VITALS: Ht 157.5 cm; Wt 90.0 kg
[2016-04-29] VITALS (7 sets, daily range): BP systolic 133–168; BP diastolic 69–84; PULSE 87–98; RESP 18–22; TEMP 97.4–99.1; O2SAT 91–93
[~2016-04-29 10:49] MED LIST changes: -AMLO5TAB2 PO; +CLIN1CAP5 PO; -DOXY100C PO; -FURO1TAB60 PO
[2016-04-29] MEDS ORDERED: DOXY100C PO (11:09)
[2016-04-29] MEDS ORDERED: TRAM50TA PO (11:09)
[2016-04-29] MEDS ORDERED: FURO1TAB60 PO (11:09)
[2016-04-29] MEDS ORDERED: AMLO5CAP PO (11:09)
[2016-04-29] MEDS ORDERED: DOXY1CAP74 PO (11:09)
--- NOTE | 2016-04-29 11:44 | PD ---
HPI Chief Complaint: Fall Time Seen by Provider: 10:55 Travel History International Travel<30 days: No Contact w/Intl Traveler<30days: No Traveled to known affect area: No History of Present Illness HPI This is an 80-year-old female who follows with Dr. Vick CUEVA for her chronic back pain who presents the emergency department having had a fall 4 days ago where she was trying to sit down on her walker and she slipped and landed on her buttocks. She said at the time she had some pain but not severe. 2 days later she woke up and was unable to sit up or get out of bed. She was unable to walk and has been unable to walk for the last 24 hours. She describes the pain as severe, and her very low back and her buttocks, radiating down both legs associated with some numbness in her legs. The patient reports she is incontinent of urine, that has been since before her injury ever so and she was diagnosed with urinary tract infection that she doesn't think has cleared up. She recently had an MRI in late March but doesn't know what the results showed. She's been trying to get into her pain management doctor but he says that her insurance will not currently cover another injection. PFSH Past Medical History Cancer: Yes (LYMPH NODES NECK, THYROID) Cardiovascular Problems: No High Cholesterol: Yes Diabetes: No Diminished Hearing: Yes (LEFT EAR) Endocrine: No Gastrointestinal Disorders: Yes (REFLUX) Genitourinary: No Hepatitis: No Hiatal Hernia: Yes Hypertension: Yes Immune Disorder: No Musculoskeletal: Yes (ARTHRITIS) Neurologic: No Psychiatric: No Reproductive: No Respiratory: Yes (COPD) Immunizations Current: Yes Thyroid Disease: Yes (CANCER) Tetanus Vaccination: < 5 Years Menopausal: Yes : 4 Para: 4 Miscarriage: 0 : 0 Tubal Ligation: Yes Past Surgical History AICD: No Body Medical Devices: CAGE IN BACK Gynecologic Surgery: Yes (HYSTERECTOMY,) Hysterectomy: Yes Joint Replacement: Yes (RIGHT HIP) Oral Surgery: Yes (THYROIDECTOMY, TONSILS,) Pacemaker: No Tonsillectomy: Yes Other Surgery: Yes ("1985,thyroid and lymph glands removed") Social History Alcohol Use: Yes (2 OZ PER DAY) Tobacco Use: No (quit 2006,was smoking one pack of cigarettes a day) Substance Use: No Allergies-Medications (Allergen,Severity, Reaction): Coded Allergies: Advil (Unverified Allergy, Severe, DIZZYNESS, 04/29/16) Penicillin (Verified Allergy, Severe, HIVES, 04/29/16) Aleve (Verified Adverse Reaction, Severe, DIZZY, 04/29/16) Reported Meds & Prescriptions Reported Meds & Active Scripts Active Clindamycin (Clindamycin HCl) 150 Mg Cap 450 Mg PO Q6H 7 Days Orphenadrine CR (Orphenadrine Citrate) 100 Mg Tab 100 Mg PO Q12HR [place] (Hydrocodone-Acetaminophen) 5-325 mg Tab 1 Tab PO Q6H PRN Reported Amlodipine-Benazepril 5-10 Mg Cap 1 Cap PO DAILY Lasix (Furosemide) 40 Mg Tab 40 Mg PO DAILY Doxycycline Hyclate 100 Mg Cap 100 Mg PO DAILY Doxycycline 40 Mg Cap 40 Mg PO DAILY Hydralazine (Hydralazine HCl) 25 Mg Tab 25 Mg PO BID Take with a meal Metolazone 2.5 Mg Tab 2.5 Mg PO ,,, Gabapentin 300 Mg Cap 300 Mg PO TID Allopurinol 100 Mg Tab 100 Mg PO DAILY Simvastatin 40 Mg Tab 40 Mg PO HS Levothyroxine (Levothyroxine Sodium) 112 Mcg Tab 112 Mcg PO DAILY Tramadol (Tramadol HCl) 50 Mg Tab 100 Mg PO Q8HR PRN Review of Systems Except as stated in HPI: all other systems reviewed are Neg Physical Exam Narrative GENERAL:Well appearing, no acute distress SKIN: Warm and dry. HEAD: Atraumatic. Normocephalic. EYES: Pupils equal and round. No injection or drainage. ENT: Moist mucous membranes NECK: Trachea midline. CARDIOVASCULAR: Regular rate and rhythm. No murmur appreciated. RESPIRATORY: Clear to auscultation. Breath sounds equal bilaterally. GASTROINTESTINAL: Abdomen soft, non-tender, nondistended. MUSCULOSKELETAL: No obvious deformities. NEUROLOGICAL: Awake and alert. No obvious cranial nerve deficits. 4 out of 5 strength in the right lower extremity, 5 out of 5 strength in the left lower extremity, sensation grossly intact in the bilateral lower extremities. Rectal tone is intact. PSYCHIATRIC: Appropriate mood and affect; insight and judgment normal. Data Data Last Documented VS Vital Signs Date Time Temp Pulse Resp B/P Pulse Ox O2 Delivery O2 Flow Rate FiO2 04/29/16 12:47 87 20 168/74 92 04/29/16 10:52 99.1 Orders Complete Blood Count With Diff (04/29/16 11:09) Comprehensive Metabolic Panel (04/29/16 11:09) Urinalysis - C+S If Indicated (04/29/16 11:09) Cath For Specimen (04/29/16 11:09) Sacrum And Coccyx (04/29/16 ) Pelvis, Ap Only (Routine) (04/29/16 ) Ct Lumb Spine W/O Contrast (04/29/16 ) Morphine Inj (Morphine Inj) (04/29/16 12:00) Admit Order (Ed Use Only) (04/29/16 13:37) Morphine Inj (Morphine Inj) (04/29/16 13:45) Labs Laboratory Tests Test 04/29/16 04/29/16 11:00 12:20 Urine Color YELLOW Urine Turbidity CLEAR Urine pH 8.0 Urine Specific [place] 1.012 Urine Protein 30 mg/dL Urine Glucose (UA) NEG mg/dL Urine Ketones 10 mg/dL Urine Occult Blood NEG Urine Nitrite NEG Urine Bilirubin NEG Urine Urobilinogen LESS THAN 2.0 MG/DL Urine Leukocyte Esterase NEG Urine RBC 1 /hpf Urine WBC LESS THAN 1 /hpf Microscopic Urinalysis Comment CATH-CULT NOT IND Sodium Level 133 MEQ/L Potassium Level 4.5 MEQ/L Chloride Level 93 MEQ/L Carbon Dioxide Level 30.1 MEQ/L Anion Gap 10 MEQ/L Blood Urea Nitrogen 9 MG/DL Creatinine 0.75 MG/DL Estimat Glomerular Filtration 74 ML/MIN Rate Random Glucose 97 MG/DL Calcium Level 9.5 MG/DL Total Bilirubin 0.6 MG/DL Aspartate Amino Transf 49 U/L (AST/SGOT) Alanine Aminotransferase 18 U/L (ALT/SGPT) Alkaline Phosphatase 135 U/L Total Protein 8.2 GM/DL Albumin 3.0 GM/DL White Blood Count 7.6 TH/MM3 Red Blood Count 4.94 MIL/MM3 Hemoglobin 15.1 GM/DL Hematocrit 45.5 % Mean Corpuscular Volume 92.1 FL Mean Corpuscular Hemoglobin 30.5 PG Mean Corpuscular Hemoglobin 33.2 % Concent Red Cell Distribution Width 19.4 % Platelet Count 297 TH/MM3 Mean Platelet Volume 8.5 FL Neutrophils (%) (Auto) 72.3 % Lymphocytes (%) (Auto) 17.5 % Monocytes (%) (Auto) 7.9 % Eosinophils (%) (Auto) 1.5 % Basophils (%) (Auto) 0.8 % Neutrophils # (Auto) 5.5 TH/MM3 Lymphocytes # (Auto) 1.3 TH/MM3 Monocytes # (Auto) 0.6 TH/MM3 Eosinophils # (Auto) 0.1 TH/MM3 Basophils # (Auto) 0.1 TH/MM3 CBC Comment AUTO DIFF MDM Medical Decision Making Medical Screen Exam Complete: Yes Emergency Medical Condition: Yes Interpretation(s) Afebrile, hypertensive No leukocytosis Mild hyponatremia Urinalysis: No infection MRI from 04/13/16: significant epidural lipomatosis at L4 into the sacrum with effacement of the thecal sac at L5-S1. Subacute compression fracture of L5 with persistent edema extending into the pedicles. S/p Posterior fusion at L3- L4, severe sclerotic deformity of the lumbar spine. No acute disc herniation. Last 24 hours Impressions Sacrum and Coccyx X-Ray 04/29/16 0000 Signed Impressions: Service Date/Time: Friday, April 29, 2016 11:34 - CONCLUSION: No sacrococcygeal fracture. Jt Zuleta MD Pelvis X-Ray 04/29/16 0000 Signed Impressions: Service Date/Time: Friday, April 29, 2016 11:33 - CONCLUSION: Severe osteoarthritis left hip. Degenerative changes. Right hip prosthesis. No fracture. Jt Zuleta MD Lumbar Spine CT 04/29/16 0000 Signed Impressions: Service Date/Time: Friday, April 29, 2016 12:10 - CONCLUSION: 1. 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 2. Postsurgical changes and prominent degenerative changes as above. Jt Zuleta MD Differential Diagnosis Compression fracture, coccygeal fracture, pelvic fracture, traumatic herniated disc Narrative Course This is an 80-year-old female who has a long history of chronic low back pain who presents to the emergency department having had a fall 4 days ago and not being able to walk for 24 hours. She is followed by Dr. Tony CUEVA as well as pain management. She was placed on a monitor and an IV was established. She was administered 4 mg of morphine for her pain. Labs were obtained which were reassuring including a urinalysis without infection. CT of the lumbar spine was obtained which demonstrates no acute compression fracture. Pelvic and coccygeal films were obtained which were negative for acute fracture. Despite pain control patient is unable to sit up let alone walk. She does have chronic urinary incontinence which has been going on since before her injury. She did have rectal tone on exam and she has 5 out of 5 strength in the left leg and 4 out of 5 in the right. I don't think an emergent MRI is warranted that she requires observation, pain control, orthopedic or neurosurgery consultation and likely rehabilitation placement as she lives alone and is unable to ambulate. Diagnosis Primary Impression: Low back pain Qualified Code: M54.41 - Chronic midline low back pain with bilateral sciatica Admitting Information Admitting Physician Requests: Observation Verona Jenkins MD Apr 29, 2016 11:44
[2016-04-29 11:57] LABS: BLOOD, URINE NEG (NEG); GLUCOSE,URINE NEG (NEG); KETONE, URINE 10 mg/dL (NEG); NITRITE,URINE NEG (NEG); URINE COLOR YELLOW (YELLW/STRAW)
[2016-04-29] MEDS ORDERED: MORPHINE SULFATE 4 MG/ML INJ IV PUSH ONE ×2 (12:00→13:45)
[2016-04-29 12:03] LABS: COMMENT (UR) CATH-CULT NOT IND; CULTURE IF INDICATED CATH CULTURE NOT IND
--- NOTE | 2016-04-29 12:14 | RADRPT ---
EXAM DATE/TIME: 04/29/2016 11:33 [facility] COMPARISON: No previous studies available for comparison. INDICATIONS : Generalized Pelvis Pain After Fall. MEDICAL HISTORY : Hypertension. Thyroid cancer. SURGICAL HISTORY : Thyroidectomy. Hysterectomy. Right hip Surgery. ENCOUNTER: Initial ACUITY: 2 days PAIN SCORE: 7/10 LOCATION: Pelvis. FINDINGS: A single frontal view of the pelvis demonstrates no evidence of fracture. Right hip prosthesis. [place] re degenerative changes left hip. Degenerative changes lower lumbar spine. Osteitis pubis. Bilateral sacroiliitis. The bony pelvic ring is intact. Bony mineralization is normal. The soft tissues are i ntact. CONCLUSION: Severe osteoarthritis left hip. Degenerative changes. Right hip prosthesis. No fracture. Jt Zuleta MD on April 29, 2016 at 12:12 Board Certified Radiologist. This report was verified electronically.
[2016-04-29 12:15] LABS: ALKALINE PHOSPHATASE 135 U/L (45-117); ALT (GPT) 18 U/L (10-53); ANION GAP 10 MEQ/L (5-15); AST (GOT) 49 U/L (15-37); BICARBONATE 30.1 MEQ/L (21.0-32.0); BLOOD UREA NITROGEN 9 MG/DL (7-18); CHLORIDE 93 MEQ/L (98-107); GLOMERULAR FILTRATION RATE 74 ML/MIN (>89); SODIUM (NA) 133 MEQ/L (136-145); TOTAL BILIRUBIN ADULT 0.6 MG/DL (0.2-1.0)
--- NOTE | 2016-04-29 12:15 | RADRPT ---
EXAM DATE/TIME: 04/29/2016 11:34 [facility] COMPARISON: No previous studies available for comparison. INDICATIONS : Generalized Tailbone pain after fall. MEDICAL HISTORY : Hypertension. Thyroid cancer. SURGICAL HISTORY : Thyroidectomy. Hysterectomy. Right Hip Surgery. ENCOUNTER: Initial ACUITY: 2 days PAIN SCORE: 7/10 LOCATION: Sacrum and Coccyx. FINDINGS: Two-view examination of the sacrum and coccyx demonstrates no evidence of fracture or malalignment. The sacral ala and foramina appear symmetric and intact. The coccyx appears unremarkable. The preve rtebral soft tissues are within normal limits. Degenerative changes lower lumbar spine and left hip. A lateral sacroiliitis. CONCLUSION: No sacrococcygeal fracture. Jt Zuleta MD on April 29, 2016 at 12:13 Board Certified Radiologist. This report was verified electronically.
[2016-04-29 12:16] LABS: POTASSIUM 4.5 MEQ/L (3.5-5.1)
--- NOTE | 2016-04-29 12:36 | RADRPT ---
EXAM DATE/TIME: 04/29/2016 12:10 [place] COMPARISON: CT LUMBAR SPINE W/O CONTRAST, March 27, 2016, 12:09. INDICATIONS : Lower back pain. fall. RADIATION DOSE: 35.86 CTDIvol (mGy) MEDICAL HISTORY : Hypertension. Chronic obstructive pulmonary disease. Renal disease, end stage. SURGICAL HISTORY : Fusion, lumbar. Hysterectomy. ENCOUNTER: Initial ACUITY: 1 day PAIN SCALE: 2/10 LOCATION: lower back TECHNIQUE: Volumetric scanning of the lumbar spine was performed. Multiplanar reconstructions in the sagittal, coronal and oblique axial planes were performed. Using automated exposure control and adjustment of the mA and/or kV according to patient size, radiation dose was kept as low as reasonably achievable t o obtain optimal diagnostic quality images. FINDINGS: VERTEBRAE: Normal vertebral body height. Extensive rotational levoscoliosis. Postsurgical changes with screws at L3-4 level. Intervertebral disc device. No fractures are seen. Extensive hypertrophic changes of the facets with evidence of previous bony fusion lower lumbar spine. No compression deformity. Broad-bas ed protrusion at L2-3 causes at least mild canal stenosis, similar changes are seen at L3-4 and L4-5 level. ALIGNMENT: No evidence of subluxation. CONCLUSION: 1. 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 2. Postsurgical changes and prominent degenerative changes as above. Jt Zuleta MD on April 29, 2016 at 12:33 Board Certified Radiologist. This report was verified electronically.
[2016-04-29 13:23] LABS: AUTOMATED NEUTROPHIL # 5.5 TH/MM3 (1.8-7.7); BASOPHIL # 0.1 TH/MM3 (0-0.2); BASOPHIL % 0.8 % (0.0-2.0); EOSINOPHIL # 0.1 TH/MM3 (0-0.4); EOSINOPHIL % 1.5 % (0.0-4.0); HEMATOCRIT 45.5 % (35.0-46.0); LYMPH % 17.5 % (9.0-44.0); LYMPHOCYTE # 1.3 TH/MM3 (1.0-4.8); MEAN CELL VOLUME 92.1 FL (80.0-100.0); MEAN CORPUSCULAR HEMOGLOBIN 30.5 PG (27.0-34.0); MEAN CORPUSCULAR HGB CONC 33.2 % (32.0-36.0); MONO % 7.9 % (0.0-8.0); NEUT % 72.3 % (16.0-70.0); RED BLOOD COUNT 4.94 MIL/MM3 (4.00-5.30); RED CELL DISTRIBUTION WIDTH 19.4 % (11.6-17.2); WHITE BLOOD COUNT 7.6 TH/MM3 (4.0-11.0)
[2016-04-29 13:24] LABS: HEMO FLAGS AUTO DIFF; PLATELET COUNT 297 TH/MM3 (150-450)
[2016-04-29 14:06] LABS: PLATELET ESTIMATE SMEAR NORMAL (NORMAL); PLATELET MORPHOLOGY CLUMPED (NORMAL); SCAN/DIFF AUTO DIFF CONFIRMED
[2016-04-29] MEDS ORDERED: MORPHINE SULFATE 4 MG/ML INJ IV PRN ×3 (14:15→15:00)
[2016-04-29] MEDS ORDERED: SODIUM CHLORIDE 0.9% FLUSH 5 ML FLUSH FLUSH PRN (14:15)
[2016-04-29] MEDS ORDERED: NALOXONE HCL 0.4 MG/ML AMP IV PRN (14:15)
[2016-04-29] MEDS ORDERED: METOLAZONE 2.5 MG TAB PO SCH (14:30)
[2016-04-29] MEDS: DOCUSATE SODIUM 100 MG CAP PO SCH ×2 (14:48→21:00)
[2016-04-29] MEDS: HEPARIN SODIUM - SQ 10,000 UNITS/ML VIAL SQ SCH ×2 (14:48→22:54)
[2016-04-29] MEDS ORDERED: BISACODYL 10 MG SUPP PR PRN (15:00)
[2016-04-29] MEDS ORDERED: KETOROLAC TROMETHAMINE 30 MG/ML (IVP) VIAL IVP PRN (15:00)
[2016-04-29] MEDS ORDERED: MAGNESIUM HYDROXIDE SUSP 30 ML CUP PO PRN (15:00)
[2016-04-29] MEDS ORDERED: ACETAMINOPHEN 325 MG TAB PO PRN (15:00)
[2016-04-29] MEDS ORDERED: SENNOSIDES 8.6 MG TAB PO PRN (15:00)
[2016-04-29] MEDS ORDERED: ONDANSETRON HCL 4 MG/2 ML VIAL IVP PRN (15:00)
[2016-04-29] MEDS ORDERED: LORazepam 2 MG TAB PO PRN (16:15)
[2016-04-29] MEDS ORDERED: LORazepam 2 MG/ML VIAL IV PUSH PRN ×4 (16:15)
[2016-04-29] MEDS ORDERED: LORazepam 1 MG TAB PO PRN (16:15)
--- NOTE | 2016-04-29 16:25 | HHI.HP ---
[facility] Primary [facility] Physician Rachna Higgins MD Admission Diagnosis back pain Diagnoses: Chief Complaint: SevereLower back pain Travel History International Travel<30 Days: No Contact w/Intl Traveler <30 Da: No Traveled to Known Affected Are: No History of Present Illness 80 years old female who has a history of lumbar herniated disc follow with Dr. Benjamin presented to the ED complaining of severe bilateral lower back pain 9- 10 out of 10 go across her lower back, and she stated shooting down to her legs down to the foot. Patient has been transferred to Dr. Bond for pain management however she was not given the shot due to insurance lack of coverage. So patient presented to hear she stated she has been in bed for 2 days she is not able to sit down or walk due to the severe pain. She denies fever or chills, she reported urinary incontinence however she attributed that to recurrent UTI that she had. She stated this incontinence started on April 02. No stool incontinent, no other neuro deficits. Patient denies short of breath, abdominal pain diarrhea constipation, headache or blurred vision Review of Systems Other All 10 systems reviewed and was positive for what is mentioned in history of present illness otherwise negative Past Family Social History Past Medical History Thyroid cancer GERD Arthritis COPD History of gout Hypothyroidism Hypertension Hyperlipidemia Chronic Peripheral edema Past Surgical History Cage in her lower back mostly lumbar area Hysterectomy Right hip replacement Thyroidectomy Tonsillectomy Allergies: Coded Allergies: Advil (Unverified Allergy, Severe, DIZZYNESS, 04/29/16) Penicillin (Verified Allergy, Severe, HIVES, 04/29/16) Aleve (Verified Adverse Reaction, Severe, DIZZY, 04/29/16) Family History Patient not aware of any disease runs in her family Social History Patient quit smoking in 2006 She drinks bourbon every day Denied illicit drug abuse Physical Exam Vital Signs Vital Signs Date Time Temp Pulse Resp B/P Pulse Ox O2 Delivery O2 Flow Rate FiO2 04/29/16 15:21 89 20 158/69 93 04/29/16 12:47 87 20 168/74 92 04/29/16 10:52 99.1 98 20 164/84 91 Physical Exam - GENERAL: This is a well-nourished, well-developed patient, in no apparent distress. SKIN: No rashes, ecchymoses or lesions. Cool and dry. HEAD: Atraumatic. Normocephalic. No temporal or scalp tenderness. EYES: Pupils equal round and reactive. Extraocular motions intact. No scleral icterus. No injection or drainage. ENT: Nose without bleeding, purulent drainage or septal hematoma. Throat without erythema, tonsillar hypertrophy or exudate. Uvula midline. Airway patent. NECK: Trachea midline. No JVD or lymphadenopathy. Supple, nontender, no meningeal signs. CARDIOVASCULAR: Regular rate and rhythm without murmurs, gallops, or rubs. RESPIRATORY: Clear to auscultation. Breath sounds equal bilaterally. No wheezes , rales, or rhonchi. GASTROINTESTINAL: Abdomen soft, non-tender, nondistended. No hepato-splenomegaly , or palpable masses. No guarding. MUSCULOSKELETAL: Extremities without clubbing, cyanosis, or edema. No joint tenderness, effusion, or edema noted. No calf tenderness. Negative Homans sign bilaterally. NEUROLOGICAL: Awake and alert. Cranial nerves II through XII intact. Motor and sensory grossly within normal limits. Five out of 5 muscle strength in all muscle groups. Normal speech. Positive tenderness points over the SI joints bilaterally and tuberous bursa bilaterally and the hip Straight leg raising test almost negative patient was able to raise her leg bilaterally up to 80 without pain Laboratory Laboratory Tests Test 04/29/16 04/29/16 11:00 12:20 Urine Color YELLOW Urine Turbidity CLEAR Urine pH 8.0 Urine Specific [place] 1.012 Urine Protein 30 Urine Glucose (UA) NEG Urine Ketones 10 Urine Occult Blood NEG Urine Nitrite NEG Urine Bilirubin NEG Urine Urobilinogen LESS THAN 2.0 Urine Leukocyte Esterase NEG Urine RBC 1 Urine WBC LESS THAN 1 Microscopic Urinalysis Comment CATH-CULT NOT IND Sodium Level 133 Potassium Level 4.5 Chloride Level 93 Carbon Dioxide Level 30.1 Anion Gap 10 Blood Urea Nitrogen 9 Creatinine 0.75 Estimat Glomerular Filtration 74 Rate Random Glucose 97 Calcium Level 9.5 Total Bilirubin 0.6 Aspartate Amino Transf 49 (AST/SGOT) Alanine Aminotransferase 18 (ALT/SGPT) Alkaline Phosphatase 135 Total Protein 8.2 Albumin 3.0 White Blood Count 7.6 Red Blood Count 4.94 Hemoglobin 15.1 Hematocrit 45.5 Mean Corpuscular Volume 92.1 Mean Corpuscular Hemoglobin 30.5 Mean Corpuscular Hemoglobin 33.2 Concent Red Cell Distribution Width 19.4 Platelet Count 297 Mean Platelet Volume 8.5 Neutrophils (%) (Auto) 72.3 Lymphocytes (%) (Auto) 17.5 Monocytes (%) (Auto) 7.9 Eosinophils (%) (Auto) 1.5 Basophils (%) (Auto) 0.8 Neutrophils # (Auto) 5.5 Lymphocytes # (Auto) 1.3 Monocytes # (Auto) 0.6 Eosinophils # (Auto) 0.1 Basophils # (Auto) 0.1 CBC Comment AUTO DIFF Differential Comment AUTO DIFF CONFIRMED Platelet Estimate NORMAL Platelet Morphology Comment CLUMPED Result Diagram: 04/29/16 1220 04/29/16 1100 Imaging Last Impressions Sacrum and Coccyx X-Ray 04/29/16 0000 Signed Impressions: Service Date/Time: Friday, April 29, 2016 11:34 - CONCLUSION: No sacrococcygeal fracture. Jt Zuleta MD Pelvis X-Ray 04/29/16 0000 Signed Impressions: Service Date/Time: Friday, April 29, 2016 11:33 - CONCLUSION: Severe osteoarthritis left hip. Degenerative changes. Right hip prosthesis. No fracture. Jt Zuleta MD Lumbar Spine CT 04/29/16 0000 Signed Impressions: Service Date/Time: Friday, April 29, 2016 12:10 - CONCLUSION: 1. 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 2. Postsurgical changes and prominent degenerative changes as above. Jt Zuleta MD Assessment and Plan Assessment and Plan 80 years female brought to the ED with a complaint of severe bilateral lower back pain that shoots to the legs Bilateral lower back pain transferring to the legs, however straight leg raising is negative, positive tenderness on the SI joints and tuberous hip bilaterally most likely bursitis rather than sciatica, causing patient to be dysfunctional not it will to sit up or to walk, started on pain management with morphine and ketorolac and Percocet, Dr. Alvarez Cohn was consulted, may need cortisone shot in the affected bursa Severe arthritis with degenerative changes on lumbar CT and pelvic and coccygeal x-ray History of gout>> continue allopurinol Hypothyroidism>> continue Synthroid COPD not an exacerbation>> O2 DuoNeb as needed Alcohol abuse>> folic acid, thiamine and will apply CIWA protocol Hypertension>> continue home meds amlodipine, lisinopril and hydralazine Hyperlipidemia>> continue statin Chronic peripheral edema>> patient on the delays and on furosemide, will continue DVT prophylax>> SCD and heparin Halima Swan MD Apr 29, 2016 16:25
[2016-04-29] MEDS ORDERED: RESP: ALBUTEROL 2.5 MG/IPRATROPIUM 0.5 MG NEB (PRN) NEB (16:30)
[2016-04-29] MEDS: GABAPENTIN 300 MG CAP PO SCH (17:54)
[2016-04-29] MEDS: ACETAMINOPHEN/HYDROcodone 325 MG/10 MG TAB PO PRN (17:54)
[2016-04-29] MEDS: THIAMINE HCL 100 MG TAB PO SCH (17:54)
[2016-04-29] MEDS: PRAVASTATIN SOD 80 MG TAB PO SCH (22:53)
[2016-04-29] MEDS: SODIUM CHLORIDE 0.9% FLUSH 5 ML FLUSH FLUSH SCH (22:53)
[2016-04-29] MEDS: hydrALAZINE HCL 25 MG TAB PO SCH (22:54)
[2016-04-29] MEDS: ACETAMINOPHEN/HYDROcodone 325 MG/5 MG TAB PO PRN (23:13)
[2016-04-29] MEDS: ORPHENADRINE CITRATE 100 MG SUSTAINED RELEASE TAB PO SCH (23:14)
[2016-04-30 05:23] LABS: BICARBONATE 34.1 MEQ/L (21.0-32.0)
[2016-04-30] MEDS: LEVOTHYROXINE SODIUM 112 MCG TAB PO SCH (05:49)
[2016-04-30] MEDS: HEPARIN SODIUM - SQ 10,000 UNITS/ML VIAL SQ SCH ×3 (05:50→21:12)
[2016-04-30 06:10] VITALS: BP 150/82; PULSE 94; RESP 18; TEMP 97.6; O2SAT 92
[2016-04-30 07:05] LABS: AUTOMATED NEUTROPHIL # 5.3 TH/MM3 (1.8-7.7); BASOPHIL # 0.1 TH/MM3 (0-0.2); BASOPHIL % 0.9 % (0.0-2.0); EOSINOPHIL # 0.2 TH/MM3 (0-0.4); EOSINOPHIL % 2.2 % (0.0-4.0); HEMATOCRIT 40.5 % (35.0-46.0); LYMPH % 17.6 % (9.0-44.0); LYMPHOCYTE # 1.3 TH/MM3 (1.0-4.8); MEAN CELL VOLUME 91.8 FL (80.0-100.0); MEAN CORPUSCULAR HGB CONC 33.7 % (32.0-36.0); NEUT % 70.3 % (16.0-70.0); RED BLOOD COUNT 4.41 MIL/MM3 (4.00-5.30); RED CELL DISTRIBUTION WIDTH 19.3 % (11.6-17.2); WHITE BLOOD COUNT 7.6 TH/MM3 (4.0-11.0)
[2016-04-30 07:08] LABS: HEMO FLAGS AUTO DIFF
[2016-04-30 07:09] LABS: PLATELET COUNT 322 TH/MM3 (150-450)
[2016-04-30 07:50] LABS: PLATELET ESTIMATE SMEAR NORMAL (NORMAL); PLATELET MORPHOLOGY CLUMPED (NORMAL); SCAN/DIFF AUTO DIFF CONFIRMED
[2016-04-30 08:32] VITALS: BP 136/80; PULSE 96; RESP 20; TEMP 98.5; O2SAT 92
[2016-04-30] MEDS: GABAPENTIN 300 MG CAP PO SCH ×3 (10:05→17:21)
[2016-04-30] MEDS: DOCUSATE SODIUM 100 MG CAP PO SCH ×2 (10:05→21:12)
[2016-04-30] MEDS: THIAMINE HCL 100 MG TAB PO SCH (10:06)
[2016-04-30] MEDS: ORPHENADRINE CITRATE 100 MG SUSTAINED RELEASE TAB PO SCH ×2 (10:06→21:12)
[2016-04-30] MEDS: FUROSEMIDE 40 MG TAB PO SCH (10:06)
[2016-04-30] MEDS: LISINOPRIL 10 MG TAB PO SCH (10:06)
[2016-04-30] MEDS: amLODIPine BESYLATE 5 MG TAB PO SCH (10:06)
[2016-04-30] MEDS: ALLOPURINOL 100 MG TAB PO SCH (10:07)
[2016-04-30] MEDS: METOLAZONE 2.5 MG TAB PO SCH (10:07)
[2016-04-30] MEDS: SODIUM CHLORIDE 0.9% FLUSH 5 ML FLUSH FLUSH SCH ×2 (10:07→21:12)
[2016-04-30] MEDS: hydrALAZINE HCL 25 MG TAB PO SCH ×2 (10:07→21:00)
[2016-04-30] MEDS: ACETAMINOPHEN/HYDROcodone 325 MG/10 MG TAB PO PRN ×3 (10:08→22:13)
[2016-04-30 12:06] VITALS: BP 122/70; PULSE 84; RESP 20; TEMP 98.1; O2SAT 96
--- NOTE | 2016-04-30 14:56 | HHI.PR ---
Subjective Remarks Stated her back pain improved after Dilaudid Seen by ortho this morning she was told she needs rehabilitation Discussed with the nurse, will consult case liner for rehabilitation placement Objective Vitals Vital Signs Date Time Temp Pulse Resp B/P Pulse Ox O2 Delivery O2 Flow Rate FiO2 04/30/16 12:06 98.1 84 20 122/70 96 04/30/16 11:15 18 04/30/16 08:32 98.5 96 20 136/80 92 04/30/16 06:10 97.6 94 18 150/82 92 04/29/16 23:08 97.4 87 18 138/82 91 04/29/16 20:51 98.2 97 18 133/73 93 04/29/16 16:15 98.0 98 22 155/75 92 04/29/16 15:21 89 20 158/69 93 Result Diagram: 04/30/16 0437 04/30/16436 Objective Remarks GENERAL: This is a well-nourished, well-developed patient, in no apparent distress. SKIN: No rashes, warm and dry HEAD: Atraumatic. Normocephalic. EYES: Pupils equal round and reactive. Extraocular motions intact. No scleral icterus. ENT: Nose without bleeding, or drainage, Airway patent. NECK: Trachea midline. Supple CARDIOVASCULAR: Regular rate and rhythm without murmurs, gallops, or rubs. RESPIRATORY: Fair air entry bilaterally. No wheezes, rales, or rhonchi. GASTROINTESTINAL: Abdomen soft, non-tender, nondistended. Positive bowel sounds MUSCULOSKELETAL: Extremities without clubbing, cyanosis, or edema. Pedal pulses appreciated, straight knee raising leg sign is negative NEUROLOGICAL: Awake and alert. Moves all extremity. Normal speech.no focal neurological deficit A/P Assessment and Plan 80 years female brought to the ED with a complaint of severe bilateral lower back pain that shoots to the legs Bilateral lower back pain transferring to the legs, negative straight leg raisinge, positive tenderness on the SI joints and tuberous hip bilaterally most likely bursitis versus sciatica, causing patient to be dysfunctional not it will to sit up or to walk, started on pain management with morphine and ketorolac and Percocet, Dr. Alvarez Cohn was consulted Severe arthritis with degenerative changes on lumbar CT and pelvic and coccygeal x-ray History of gout>> continue allopurinol Hypothyroidism>> continue Synthroid COPD not an exacerbation>> O2 DuoNeb as needed Alcohol abuse>> folic acid, thiamine and will apply CIWA protocol Hypertension>> continue home meds amlodipine, lisinopril and hydralazine Hyperlipidemia>> continue statin Chronic peripheral edema>> patient on the delays and on furosemide, will continue DVT prophylax>> SCD and heparin Discharge Planning In cleared by ortho, She will mostly need rehabilitation, case liner consult Halima Swan MD Apr 30, 2016 14:56
[2016-04-30 16:09] VITALS: BP 104/58; PULSE 93; RESP 20; TEMP 98.1; O2SAT 90
[2016-04-30 20:55] VITALS: BP 109/56; PULSE 96; RESP 18; TEMP 98.1; O2SAT 92
[2016-04-30] MEDS: PRAVASTATIN SOD 80 MG TAB PO SCH (21:11)
[2016-05-01 01:47] VITALS: BP 141/90; PULSE 87; RESP 18; TEMP 97.2; O2SAT 92
[2016-05-01] MEDS: ACETAMINOPHEN/HYDROcodone 325 MG/10 MG TAB PO PRN ×2 (02:37→10:07)
[2016-05-01] MEDS: HEPARIN SODIUM - SQ 10,000 UNITS/ML VIAL SQ SCH ×4 (06:00→22:08)
[2016-05-01 06:01] VITALS: BP 108/56; PULSE 66; RESP 18; TEMP 97.2; O2SAT 91
[2016-05-01] MEDS: LEVOTHYROXINE SODIUM 112 MCG TAB PO SCH (06:29)
[2016-05-01 08:00] VITALS: BP 108/55; PULSE 88; RESP 22; TEMP 98.8; O2SAT 94
[2016-05-01] MEDS: LISINOPRIL 10 MG TAB PO SCH ×2 (09:00→10:06)
[2016-05-01] MEDS: amLODIPine BESYLATE 5 MG TAB PO SCH ×2 (09:00→10:06)
[2016-05-01] MEDS: hydrALAZINE HCL 25 MG TAB PO SCH ×3 (09:00→22:07)
[2016-05-01] MEDS: ORPHENADRINE CITRATE 100 MG SUSTAINED RELEASE TAB PO SCH ×2 (10:05→22:07)
[2016-05-01] MEDS: METOLAZONE 2.5 MG TAB PO SCH (10:06)
[2016-05-01] MEDS: THIAMINE HCL 100 MG TAB PO SCH (10:06)
[2016-05-01] MEDS: FUROSEMIDE 40 MG TAB PO SCH (10:06)
[2016-05-01] MEDS: ALLOPURINOL 100 MG TAB PO SCH (10:06)
[2016-05-01] MEDS: GABAPENTIN 300 MG CAP PO SCH ×3 (10:06→18:03)
[2016-05-01] MEDS: DOCUSATE SODIUM 100 MG CAP PO SCH ×2 (10:06→22:07)
[2016-05-01] MEDS: SODIUM CHLORIDE 0.9% FLUSH 5 ML FLUSH FLUSH SCH ×2 (10:07→22:08)
[2016-05-01] MEDS ORDERED: HYDR-3516 PO (10:41)
[2016-05-01 12:00] VITALS: BP 103/59; PULSE 89; RESP 22; TEMP 97.3; O2SAT 94
--- NOTE | 2016-05-01 12:10 | HHI.PR ---
Subjective Remarks Patient stated her pain is controlled with the pain medication Discussed with the nurse and the egg caser, she got accepted by [facility] awaiting insurance company authorization Ortho cleared for discharge as per the nurse Objective Vitals Vital Signs Date Time Temp Pulse Resp B/P Pulse Ox O2 Delivery O2 Flow Rate FiO2 05/01/16 11:07 18 05/01/16 08:00 98.8 88 22 108/55 94 05/01/16 06:01 97.2 66 18 108/56 91 05/01/16 01:47 97.2 87 18 141/90 92 04/30/16 20:55 98.1 96 18 109/56 92 04/30/16 16:09 98.1 93 20 104/58 90 I/O 04/30/16 04/30/16 04/30/16 05/01/16 05/01/16 05/01/16 07:00 15:00 23:00 07:00 15:00 23:00 Intake Total 960 ml Balance 960 ml Intake Oral 960 ml # Voids 3 # Bowel Movements 2 Result Diagram: 04/30/16 0437 04/30/16 0437 Objective Remarks GENERAL: This is a well-nourished, well-developed patient, in no apparent distress. SKIN: No rashes, warm and dry HEAD: Atraumatic. Normocephalic. EYES: Pupils equal round and reactive. Extraocular motions intact. No scleral icterus. ENT: Nose without bleeding, or drainage, Airway patent. NECK: Trachea midline. Supple CARDIOVASCULAR: Regular rate and rhythm without murmurs, gallops, or rubs. RESPIRATORY: Fair air entry bilaterally. No wheezes, rales, or rhonchi. GASTROINTESTINAL: Abdomen soft, non-tender, nondistended. Positive bowel sounds MUSCULOSKELETAL: Extremities without clubbing, cyanosis, or edema. Pedal pulses appreciated, straight knee raising leg sign is negative NEUROLOGICAL: Awake and alert. Moves all extremity. Normal speech.no focal neurological deficit A/P Assessment and Plan 80 years female brought to the ED with a complaint of severe bilateral lower back pain that shoots to the legs Bilateral lower back pain transferring to the legs, negative straight leg raisinge, positive tenderness on the SI joints and tuberous hip bilaterally most likely bursitis versus sciatica, causing patient to be dysfunctional not it will to sit up or to walk, started on pain management with morphine and ketorolac and Percocet, Dr. Alvarez Cohn consulted, per the nurse he recommended no surgical intervention, rehabilitation for physical therapy and follow up as an outpatient Severe arthritis with degenerative changes on lumbar CT and pelvic and coccygeal x-ray History of gout>> continue allopurinol Hypothyroidism>> continue Synthroid COPD not an exacerbation>> O2 DuoNeb as needed Alcohol abuse>> folic acid, thiamine and will apply CIWA protocol Hypertension>> continue home meds amlodipine, lisinopril and hydralazine Hyperlipidemia>> continue statin Chronic peripheral edema>> patient on the delays and on furosemide, will continue DVT prophylax>> SCD and heparin Discharge Planning To rehabilitation today per egg caser, awaking insurance authorization Halima Swan MD May 01, 2016 12:10
--- NOTE | 2016-05-01 12:13 | HHI.DS ---
Discharge Summary Admission Date Apr 29, 2016 at 13:38 Discharge Date: May 01, 2016 Admitting Diagnosis back pain (1) Low back pain ICD Code: M54.5 (2) Chronic back pain ICD Code: M54.9 (3) laminectomy and decompression with fusion Procedures None Brief History - From Admission 80 years old female who has a history of lumbar herniated disc follow with Dr. Benjamin presented to the ED complaining of severe bilateral lower back pain 9- 10 out of 10 go across her lower back, and she stated shooting down to her legs down to the foot. Patient has been transferred to Dr. Bond for pain management however she was not given the shot due to insurance lack of coverage. So patient presented to hear she stated she has been in bed for 2 days she is not able to sit down or walk due to the severe pain. She denies fever or chills, she reported urinary incontinence however she attributed that to recurrent UTI that she had. She stated this incontinence started on April 02. No stool incontinent, no other neuro deficits. Patient denies short of breath, abdominal pain diarrhea constipation, headache or blurred vision CBC/BMP: 04/30/16 0437 04/30/16 0437 Significant Findings Laboratory Tests Test 04/29/16 04/29/16 04/30/16 11:00 12:20 04:37 Urine Protein 30 mg/dL (NEG-TRACE) Urine Ketones 10 mg/dL (NEG) Sodium Level 133 MEQ/L 135 MEQ/L (136-145) (136-145) Chloride Level 93 MEQ/L 94 MEQ/L (98-107) (98-107) Estimat Glomerular Filtration 74 ML/MIN (>89) 61 ML/MIN (>89) Rate Aspartate Amino Transf 49 U/L (15-37) (AST/SGOT) Alkaline Phosphatase 135 U/L (45-117) Albumin 3.0 GM/DL (3.4-5.0) Red Cell Distribution Width 19.4 % 19.3 % (11.6-17.2) (11.6-17.2) Neutrophils (%) (Auto) 72.3 % 70.3 % (16.0-70.0) (16.0-70.0) Platelet Morphology Comment CLUMPED CLUMPED (NORMAL) (NORMAL) Monocytes (%) (Auto) 9.0 % (0.0-8.0) Carbon Dioxide Level 34.1 MEQ/L (21.0-32.0) Random Glucose 108 MG/DL (74-106) PE at Discharge GENERAL: This is a well-nourished, well-developed patient, in no apparent distress. SKIN: No rashes, warm and dry HEAD: Atraumatic. Normocephalic. EYES: Pupils equal round and reactive. Extraocular motions intact. No scleral icterus. ENT: Nose without bleeding, or drainage, Airway patent. NECK: Trachea midline. Supple CARDIOVASCULAR: Regular rate and rhythm without murmurs, gallops, or rubs. RESPIRATORY: Fair air entry bilaterally. No wheezes, rales, or rhonchi. GASTROINTESTINAL: Abdomen soft, non-tender, nondistended. Positive bowel sounds MUSCULOSKELETAL: Extremities without clubbing, cyanosis, or edema. Pedal pulses appreciated, straight knee raising leg sign is negative NEUROLOGICAL: Awake and alert. Moves all extremity. Normal speech.no focal neurological deficit Hospital Course 80 years female brought to the ED with a complaint of severe bilateral lower back pain that shoots to the legs Bilateral lower back pain transferring to the legs, negative straight leg raisinge, positive tenderness on the SI joints and tuberous hip bilaterally most likely bursitis versus sciatica, causing patient to be dysfunctional not it will to sit up or to walk, started on pain management with morphine and ketorolac and Percocet, Dr. Alvarez Cohn consulted, per the nurse he recommended no surgical intervention, rehabilitation for physical therapy and follow up as an outpatient Severe arthritis with degenerative changes on lumbar CT and pelvic and coccygeal x-ray History of gout>> continue allopurinol Hypothyroidism>> continue Synthroid COPD not an exacerbation>> O2 DuoNeb as needed Alcohol abuse>> folic acid, thiamine and will apply CIWA protocol Hypertension>> continue home meds amlodipine, lisinopril and hydralazine Hyperlipidemia>> continue statin Chronic peripheral edema>> patient on the delays and on furosemide, will continue DVT prophylax>> SCD and heparin [id number] encounter performed with the patient on discharge day, as well as physical exam, summary of hospitalization course and postdischarge plan has been D/W the patient. D/W nurse D/W director of casework. Discharge medications reviewed and printed and signed, post discharge follow up visit with PCP and other specialist as well as Brief hospital course and discharge summary has been placed. Pt Condition on Discharge: Fair Discharge Disposition: Discharge to SNF Discharge Time: > 30 minutes Discharge Instructions DIET: Follow Instructions for: Heart Healthy Diet Activities you can perform: See Additionl Instruction Other Activity Instructions: per pt recs Follow up Referrals: Orthopedics - 1 Week with Alvarez Benjamin MD New Medications: Hydrocodone-Acetaminophen (Hydrocodone-Acetaminophen) 5-325 mg Tab 1 TAB PO Q4H PRN PAIN SCALE 3 TO 5 #25 TAB Continued Medications: Allopurinol (Allopurinol) 100 Mg Tab 100 MG PO DAILY Gout #30 Ref 0 TAB Amlodipine-Benazepril (Amlodipine-Benazepril) 5-10 Mg Cap 1 CAP PO DAILY Blood Pressure Management #30 Ref 0 CAP Furosemide (Lasix) 40 Mg Tab 40 MG PO DAILY #30 Ref 0 TAB Gabapentin (Gabapentin) 300 Mg Cap 300 MG PO TID #90 Ref 0 CAP Hydralazine (Hydralazine) 25 Mg Tab 25 MG PO BID Take with a meal Blood Pressure Management #60 Ref 0 TAB Levothyroxine (Levothyroxine) 112 Mcg Tab 112 MCG PO DAILY Thyroid #30 Ref 0 TAB Metolazone (Metolazone) 2.5 Mg Tab 2.5 MG PO T,TH,SA,MICHELLE #30 Ref 0 TAB Orphenadrine ER 12 HR (Orphenadrine CR) 100 Mg Tab 100 MG PO Q12HR Muscle Spasm #20 Ref 0 TAB Simvastatin (Simvastatin) 40 Mg Tab 40 MG PO HS Cholesterol Management #30 Ref 0 TAB Halima Swan MD May 01, 2016 12:13
[2016-05-01 16:00] VITALS: BP 116/59; PULSE 88; RESP 20; TEMP 97.8; O2SAT 91
[2016-05-01] MEDS: ACETAMINOPHEN/HYDROcodone 325 MG/5 MG TAB PO PRN (16:33)
[2016-05-01 22:03] VITALS: BP 127/73; PULSE 89; RESP 18; TEMP 97.6; O2SAT 91
[2016-05-01] MEDS: PRAVASTATIN SOD 80 MG TAB PO SCH (22:07)
[2016-05-02 00:32] VITALS: BP 123/69; PULSE 88; RESP 18; TEMP 97.7; O2SAT 91
[2016-05-02 06:02] VITALS: BP 135/69; PULSE 88; RESP 18; TEMP 97.2; O2SAT 93
[2016-05-02] MEDS: LEVOTHYROXINE SODIUM 112 MCG TAB PO SCH (06:12)
[2016-05-02] MEDS: HEPARIN SODIUM - SQ 10,000 UNITS/ML VIAL SQ SCH ×3 (06:13→21:58)
[2016-05-02 07:44] VITALS: BP 140/65; PULSE 93; RESP 20; TEMP 97; O2SAT 90
[2016-05-02] MEDS: SODIUM CHLORIDE 0.9% FLUSH 5 ML FLUSH FLUSH SCH ×2 (08:03→21:59)
[2016-05-02] MEDS: METOLAZONE 2.5 MG TAB PO SCH (08:04)
[2016-05-02] MEDS: hydrALAZINE HCL 25 MG TAB PO SCH ×2 (08:04→21:55)
[2016-05-02] MEDS: GABAPENTIN 300 MG CAP PO SCH ×3 (08:04→17:09)
[2016-05-02] MEDS: ALLOPURINOL 100 MG TAB PO SCH (08:04)
[2016-05-02] MEDS: LISINOPRIL 10 MG TAB PO SCH (08:04)
[2016-05-02] MEDS: FUROSEMIDE 40 MG TAB PO SCH (08:04)
[2016-05-02] MEDS: amLODIPine BESYLATE 5 MG TAB PO SCH (08:04)
[2016-05-02] MEDS: THIAMINE HCL 100 MG TAB PO SCH (08:04)
[2016-05-02] MEDS: DOCUSATE SODIUM 100 MG CAP PO SCH ×2 (08:04→21:00)
[2016-05-02] MEDS: ORPHENADRINE CITRATE 100 MG SUSTAINED RELEASE TAB PO SCH ×2 (08:04→21:55)
[2016-05-02] MEDS: ACETAMINOPHEN/HYDROcodone 325 MG/10 MG TAB PO PRN ×4 (08:05→22:03)
--- NOTE | 2016-05-02 08:50 | MB ---
cc: RIA FENG M.D. DATE OF CONSULTATION 04/30/2016 DATE OF 1935 CHIEF COMPLAINT Fall with back injury. HISTORY OF PRESENT ILLNESS This is an 80-year-old white female who was brought to the emergency department on April 29, 2016 with complaints of severe back pain. The patient does have a history of chronic back pain and back surgery. The patient generally follows with Dr. Alvarez Benjamin for her back and saw him approximately one week ago for chronic back pain. The patient also sees Dr. Bond for pain management and tells me that she saw him four days ago. The patient had requested an epidural steroid injection. However, she was unable to obtain this in his office as this is a procedure that has to be approved through her insurance prior to receiving the injections. The patient states that on Sunday of this week she was working in her garden when she went to sit back on her walker that has a seat. The patient's walker was not locked and moved causing her to fall onto her buttocks. The patient had a difficult time getting up from the ground and reported some low back discomfort. The patient was able to ambulate after this. The patient reports trying to take her walker out of her vehicle on and she states she twisted her back. The patient woke up Sunday morning with severe pain and was unable to ambulate. The patient reports radicular pain into the bilateral lower extremities when weightbearing. The patient also has been incontinent of urine. Currently the patient reports severe pain which is localized over the low back and bilateral buttocks. The patient is able to move her legs without pain. The patient still reports an inability to ambulate secondary to severe pain. REVIEW OF SYSTEMS Negative times 12 except for what is stated in the HPI. PAST MEDICAL HISTORY Includes: 1. Thyroid cancer. 2. High cholesterol. 3. 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 4. Reflux. 5. Hiatal hernia. 6. Hypertension. 7. Chronic low back pain. 8. COPD. PAST SURGICAL HISTORY Includes: 1. Tubal ligation. 2. Hysterectomy. 3. Lumbar fusion at L3-L4. 4. Right hip replacement. 5. Thyroidectomy. 6. Tonsillectomy. SOCIAL HISTORY Includes occasional use of alcohol. No current use of tobacco. The patient did quit smoking in 2006 where she was smoking one pack of cigarettes a day. ALLERGIES INCLUDE ADVIL, PENICILLIN AND ALEVE. MEDICATIONS Current medications include: 1. Clindamycin 450 mg by mouth q.6h for 7 days. 2. Orphenadrine citrate 100 mg by mouth twice a day. 3. Albion 5 mg tablets by mouth q.6h p.r.n. 4. Amlodipine / Benazepril 5/10 mg capsules by mouth daily. 5. Lasix 40 mg by mouth daily. 6. Doxycycline hyclate 100 mg by mouth daily. 7. Doxycycline 40 mg by mouth daily. 8. Hydralazine 25 mg by mouth twice a day. 9. Gabapentin 300 mg by mouth three times a day. 10. Metolazone 2.5 mg by mouth on Tuesdays, , Sunday and Sunday. 11. Allopurinol 100 mg by mouth daily. 12. Simvastatin 40 mg by mouth at night. 13. Levothyroxine 112 mcg by mouth daily. 14. Tramadol 50 mg tabs, two tablets by mouth q.8h p.r.n. PHYSICAL EXAMINATION VITAL SIGNS: Are as follows temperature is 98.1, pulse 93, respiratory rate 20, blood pressure 104/58 and pulse ox is 96% on room air. GENERAL: The patient is well-appearing and in no acute distress. Skin is warm and dry. HEENT: Head is atraumatic and normocephalic. Eyes are PEPE. Ear, nose, and throat, mucous membranes are pink and moist. NECK: Supple and trachea is midline. CARDIOVASCULAR: There is regular rate and rhythm. LUNGS: There is symmetric chest wall rise and no labored breathing. GASTROINTESTINAL: Abdomen is soft, nontender, nondistended. MUSCULOSKELETAL: The patient moves her bilateral ankles, knees and hips within normal limits without any tenderness to palpation. The patient moves her bilateral upper extremities including the hands, elbows and shoulders within normal limits with no tenderness to palpation. The patient does have some tenderness midline about the L3-L4 and L5 region of her lumbar spine. The patient also has some mild to moderate tenderness to palpation over the bilateral paraspinal musculature and bilateral buttocks. The patient has no tenderness to palpation over the cervical spine or thoracic spine. NEUROLOGICAL: The patient is awake and alert and oriented x3. There is no obvious cranial nerve deficits. The patient has good sensation to light touch about the bilateral lower extremities. PSYCHIATRIC: The patient has appropriate mood and affect. LABORATORY DATA Labs taken on 04/30/2016 shows a white blood cells are 7.6, hemoglobin 13.7, hematocrit 40.5, platelets are 322. Creatinine is 0.89, glucose is 108. Urinalysis taken on 04/29/2016 shows the patient is negative for glucose, blood, nitrates, bilirubin, and leukocyte esterase. The patient has 10 ketones and 30 protein. The patient has less than one white blood cell and culture is not indicated. IMAGING X-ray of the sacrum and coccyx taken on 04/29/2016 reads as no sacral coccygeal fracture. I did review these images and agree with radiologist's interpretation. X-ray of the pelvis AP taken on 04/29/2016 reads as severe osteoarthritis of the left hip with degenerative changes. Right hip prosthesis with no fracture. I did review the above images and agree with the radiologist's interpretation. CT of the lumbar spine without contrast taken on March 27, 2016 reads as rotational level scoliosis without fracture. There is postsurgical changes and prominent degenerative changes noted. Post surgery changes are seen at L3-L4. IMPRESSION 1. History of lumbar spine instrumented fusion at L3-L4. 2. Lumbar spine degenerative disk disease and osteoarthritis. 3. Lumbar spine strain. 4. Right total hip arthroplasty. MEDICAL DECISION MAKING Based on the radiology reports and the patient's clinical exam, I do feel that her current symptoms are associated with the lumbar spine. The patient does have a history of chronic back pain and follows with Dr. Alvarez Benjamin and Dr. Bond for pain management. I did offer the patient a lumbar corset to wear for support, however, the patient has multiple back braces at home and refuses this today. I have advised the patient to follow up as an outpatient with Dr. Alvarez Benjamin. The patient should also follow up again with Dr. Bond to see about insurance authorization for epidural steroid injections as previously discussed. The patient should continue to use a walker or cane for ambulation secondary to being a high risk for falls. The patient is currently on chronic pain medication for her chronic back pain. I do not feel that her bilateral lower extremity pain is associated with the pelvis or hips based on x-rays and the patient's clinical exam. It does appear that her symptoms are associated with her lumbar spine. I have reviewed the above impression and plan of care with Dr. Feng and he agrees with this documentation. Dictated by Ron Lopes, IDENTIFICATION PRINTING MACHINE SETTER MD JAZIEL Brenner/KK /4:45 PM /8:45 AM
[2016-05-02 11:28] VITALS: BP 94/49; PULSE 92; RESP 20; TEMP 97.4; O2SAT 93
--- NOTE | 2016-05-02 13:52 | HHI.PR ---
Subjective Remarks Patient laying in bed comfortably, still awaiting authorization from insurance be transferred to rehabilitation Objective Vitals Vital Signs Date Time Temp Pulse Resp B/P Pulse Ox O2 Delivery O2 Flow Rate FiO2 05/02/16 11:28 97.4 92 20 94/49 93 05/02/16 07:44 97.0 93 20 140/65 90 05/02/16 06:02 97.2 88 18 135/69 93 05/02/16 00:38 18 05/02/16 00:38 18 05/02/16 00:32 97.7 88 18 123/69 91 05/01/16 22:03 97.6 89 18 127/73 91 05/01/16 17:42 20 05/01/16 16:00 97.8 88 20 116/59 91 Result Diagram: 04/30/1643604/30/16436 Objective Remarks GENERAL: This is a well-nourished, well-developed patient, in no apparent distress. SKIN: No rashes, warm and dry HEAD: Atraumatic. Normocephalic. EYES: Pupils equal round and reactive. Extraocular motions intact. No scleral icterus. ENT: Nose without bleeding, or drainage, Airway patent. NECK: Trachea midline. Supple CARDIOVASCULAR: Regular rate and rhythm without murmurs, gallops, or rubs. RESPIRATORY: Fair air entry bilaterally. No wheezes, rales, or rhonchi. GASTROINTESTINAL: Abdomen soft, non-tender, nondistended. Positive bowel sounds MUSCULOSKELETAL: Extremities without clubbing, cyanosis, or edema. Pedal pulses appreciated, straight knee raising leg sign is negative NEUROLOGICAL: Awake and alert. Moves all extremity. Normal speech.no focal neurological deficit Procedures None A/P Problem List: (1) Low back pain ICD Code: M54.5 Status: Acute (2) Chronic back pain ICD Code: M54.9 Status: Acute (3) laminectomy and decompression with fusion Status: Acute Assessment and Plan 80 years female brought to the ED with a complaint of severe bilateral lower back pain that shoots to the legs Bilateral lower back pain transferring to the legs, negative straight leg raisinge, positive tenderness on the SI joints and tuberous hip bilaterally most likely bursitis versus sciatica, causing patient to be dysfunctional not it will to sit up or to walk, started on pain management with morphine and ketorolac and Percocet, Dr. Alvarez Cohn consulted, per the nurse he recommended no surgical intervention, rehabilitation for physical therapy and follow up as an outpatient Severe arthritis with degenerative changes on lumbar CT and pelvic and coccygeal x-ray History of gout>> continue allopurinol Hypothyroidism>> continue Synthroid COPD not an exacerbation>> O2 DuoNeb as needed Alcohol abuse>> folic acid, thiamine and will apply CIWA protocol Hypertension>> continue home meds amlodipine, lisinopril and hydralazine Hyperlipidemia>> continue statin Chronic peripheral edema>> patient on the delays and on furosemide, will continue DVT prophylax>> SCD and heparin Discharge Planning awaking insurance authorization for rehabilitation transfer Problem Qualifiers (1) Low back pain: Qualified Code: M54.41 - Chronic midline low back pain with bilateral sciatica Halima Swan MD May 02, 2016 13:52
[2016-05-02 15:21] VITALS: BP 119/57; PULSE 91; RESP 20; TEMP 98.8; O2SAT 92
[2016-05-02 21:08] VITALS: BP 110/62; PULSE 94; RESP 18; TEMP 97.2; O2SAT 93
[2016-05-02] MEDS: PRAVASTATIN SOD 80 MG TAB PO SCH (21:55)
[2016-05-03 01:49] VITALS: BP 126/67; PULSE 99; RESP 18; TEMP 97; O2SAT 92
[2016-05-03] MEDS: ACETAMINOPHEN/HYDROcodone 325 MG/10 MG TAB PO PRN ×3 (02:04→12:56)
[2016-05-03] MEDS: HEPARIN SODIUM - SQ 10,000 UNITS/ML VIAL SQ SCH ×2 (05:11→14:00)
[2016-05-03] MEDS: LEVOTHYROXINE SODIUM 112 MCG TAB PO SCH (05:11)
[2016-05-03 06:03] VITALS: BP 118/60; PULSE 84; RESP 18; TEMP 96.8; O2SAT 90
[2016-05-03 08:38] VITALS: BP 107/55; PULSE 82; RESP 18; TEMP 96.1; O2SAT 92
[2016-05-03] MEDS: SODIUM CHLORIDE 0.9% FLUSH 5 ML FLUSH FLUSH SCH (09:05)
[2016-05-03] MEDS: FUROSEMIDE 40 MG TAB PO SCH (09:06)
[2016-05-03] MEDS: ORPHENADRINE CITRATE 100 MG SUSTAINED RELEASE TAB PO SCH (09:06)
[2016-05-03] MEDS: METOLAZONE 2.5 MG TAB PO SCH (09:06)
[2016-05-03] MEDS: THIAMINE HCL 100 MG TAB PO SCH (09:06)
[2016-05-03] MEDS: GABAPENTIN 300 MG CAP PO SCH ×2 (09:06→12:56)
[2016-05-03] MEDS: DOCUSATE SODIUM 100 MG CAP PO SCH (09:07)
[2016-05-03] MEDS: ALLOPURINOL 100 MG TAB PO SCH (09:07)
[2016-05-03] MEDS: amLODIPine BESYLATE 5 MG TAB PO SCH (09:07)
[2016-05-03] MEDS: LISINOPRIL 10 MG TAB PO SCH (09:07)
[2016-05-03] MEDS: hydrALAZINE HCL 25 MG TAB PO SCH (09:09)
[2016-05-03 15:39] VITALS: BP 95/51; PULSE 85; RESP 17; TEMP 96.1; O2SAT 92
[2016-05-03] MEDS ORDERED: SODIUM CHLOR 0.9% 250 ML INJ 250 ML IV ONE (15:45)
--- NOTE | 2016-05-03 15:49 | HHI.PR ---
Subjective Remarks pt in bed denied dizziness or light headedness or cp her bp 80/50 with hr 95 i will dc morphine , keep only 0.5 mg for break through , hold lasix and lisinopruil , will give 250 cc ns bolus Objective Vitals Vital Signs Date Time Temp Pulse Resp B/P Pulse Ox O2 Delivery O2 Flow Rate FiO2 05/03/16 15:39 96.1 85 17 95/51 92 05/03/16 08:38 96.1 82 18 107/55 92 05/03/16 06:03 96.8 84 18 118/60 90 05/03/16 03:36 18 05/03/16 01:49 97.0 99 18 126/67 92 05/02/16 21:08 97.2 94 18 110/62 93 Result Diagram: 04/30/1643604/30/16436 Objective Remarks GENERAL: This is a well-nourished, well-developed patient, in no apparent distress. SKIN: No rashes, warm and dry HEAD: Atraumatic. Normocephalic. EYES: Pupils equal round and reactive. Extraocular motions intact. No scleral icterus. ENT: Nose without bleeding, or drainage, Airway patent. NECK: Trachea midline. Supple CARDIOVASCULAR: Regular rate and rhythm without murmurs, gallops, or rubs. RESPIRATORY: Fair air entry bilaterally. No wheezes, rales, or rhonchi. GASTROINTESTINAL: Abdomen soft, non-tender, nondistended. Positive bowel sounds MUSCULOSKELETAL: Extremities without clubbing, cyanosis, or edema. Pedal pulses appreciated, straight knee raising leg sign is negative NEUROLOGICAL: Awake and alert. Moves all extremity. Normal speech.no focal neurological deficit Procedures None A/P Problem List: (1) Low back pain ICD Code: M54.5 Status: Acute (2) Chronic back pain ICD Code: M54.9 Status: Acute (3) laminectomy and decompression with fusion Status: Acute Assessment and Plan 80 years female brought to the ED with a complaint of severe bilateral lower back pain that shoots to the legs Bilateral lower back pain transferring to the legs, negative straight leg raisinge, positive tenderness on the SI joints and tuberous hip bilaterally most likely bursitis versus sciatica, causing patient to be dysfunctional not it will to sit up or to walk, started on pain management with morphine and ketorolac and Percocet, Dr. Alvarez Cohn consulted, per the nurse he recommended no surgical intervention, rehabilitation for physical therapy and follow up as an outpatient Severe arthritis with degenerative changes on lumbar CT and pelvic and coccygeal x-ray hypotensive with tachycardia , hold lasix , dc morophine , ns bolus History of gout>> continue allopurinol Hypothyroidism>> continue Synthroid COPD not an exacerbation>> O2 DuoNeb as needed Alcohol abuse>> folic acid, thiamine and will apply CIWA protocol Hypertension>> continue home meds amlodipine, lisinopril and hydralazine Hyperlipidemia>> continue statin Chronic peripheral edema>> patient on the delays and on furosemide, will continue DVT prophylax>> SCD and heparin Discharge Planning awaking insurance authorization for rehabilitation transfer Problem Qualifiers (1) Low back pain: Qualified Code: M54.41 - Chronic midline low back pain with bilateral sciatica Halima Swan MD May 03, 2016 15:49
[2016-05-03] MEDS ORDERED: MORPHINE SULFATE 4 MG/ML INJ IV PRN (18:15)
== END 2016-05-03 17:37 | disposition home or self-care (01) ==
LOC: NEPE 10:49 → NEDA 13:38 → NEPGCP 15:20
PROVIDERS: ADMIT Hospitalist; ATTEND Hospitalist
DX: M54.41 Lumbago with sciatica, right side (principal); M54.42 Lumbago with sciatica, left side; G89.29 Other chronic pain; M51.36 Other intervertebral disc degeneration, lumbar region; M41.9 Scoliosis, unspecified; I10 Essential (primary) hypertension; E78.5 Hyperlipidemia, unspecified; E03.9 Hypothyroidism, unspecified; E78.00 Pure hypercholesterolemia, unspecified; R32 Unspecified urinary incontinence; F10.10 Alcohol abuse, uncomplicated; J44.9 Chronic obstructive pulmonary disease, unspecified; K21.9 Gastro-esophageal reflux disease without esophagitis; M10.9 Gout, unspecified; M16.12 Unilateral primary osteoarthritis, left hip; Z85.850 Personal history of malignant neoplasm of thyroid; Z87.440 Personal history of urinary (tract) infections; Z87.891 Personal history of nicotine dependence; Z96.641 Presence of right artificial hip joint; W19.XXXA Unspecified fall, initial encounter
CPT/HCPCS: 72131; 72170; 72220; 80048; 80053; 81001; 82550; 82746; 85025; 87641; 96374; 97110; 97116; 97163; 99285; G0378; J1644; J1885; J2270; P9612

== ENCOUNTER → 2016-09-06 | Outpatient (CLI) | payer OTHER ==
[~2016-09-06] MED LIST changes: +AMLO5CAP PO; +DOXY100C PO; +DOXY1CAP74 PO; +FURO1TAB60 PO; +HYDR-3516 PO
[2016-09-06 10:14] LABS: BLOOD GAS BASE EXCESS 5.4 mmol/L (-2-2); BLOOD GAS CARBOXYHEMOGLOBIN 2.7 % (0-4); BLOOD GAS HCO3 29 mmol/L (22-26); BLOOD GAS METHEMOGLOBIN 1.3 % (0-2); BLOOD GAS O2 HGB SATURATION 81 % (90-100); BLOOD GAS OXYGEN CONTENT 14.5 Vol % (12.0-20.0); BLOOD GAS PCO2 42 mmHG (38-42); BLOOD GAS PO2 49 mmHG (61-120); BLOOD GAS TOTAL HGB 12.8 G/DL (12.0-16.0); TEMP CORR TO 98.6
[2016-09-06 10:15] LABS: CRITICAL VALUE YES; DRAW SITE LT RADIAL; FIO2 21 %; NUMBER OF ARTERIAL PUNCTURES 2; STAT NO; ULNAR PULSE PRESENT
--- NOTE | 2016-09-08 10:01 | RSPPFT ---
DATE OF PROCEDURE: 09/06/16 COMMENTS: Spirometry shows FVC of 1.5 at 66% of predicted, FEV1 of 1.0 at 68%, FEV1/FVC ratio is decreased. Flow is decreased at FEF 25, FEF 50, FEF 75 and FEF 25-75. There is no response after bronchodilator treatment. Lung volumes show residual volume is normal. TLC is slightly decreased. Diffusion capacity is severely decreased. Flow volume indicates mild terminal airways obstruction. Blood gases show pH of 7.46, PCO2 of 42, PO2 of 49, BiCarb of 29, Saturation at 81%. IMPRESSION: 1. Mild obstructive lung disease. 2. Additional mild restrictive lung disease. 3. Severe loss in diffusion capacity. 4. Blood gases show significant hypoxia.
== END ==
LOC: PHRSP 09:27
PROVIDERS: ATTEND Specialist
DX: J44.9 Chronic obstructive pulmonary disease, unspecified (principal); J84.10 Pulmonary fibrosis, unspecified
CPT/HCPCS: 36600; 82805; 94060; 94726; 94729

== ENCOUNTER → 2017-01-05 | Day surgery (SDC) | payer OTHER ==
[~2017-01-05] MED LIST changes: +ACETAMINOPHEN/HYDROcodone 325 MG/5 MG TAB ONE; +IOHEXOL 180 MG/ML 20 ML VIAL (for RAD DIAG) OTHER ONE; +PROPOFOL 100 MG/10 ML INJ IV ONE; +TRIAMCINOLONE ACETONIDE 40 MG/ML VIAL ONE
== END | disposition home or self-care (01) ==
LOC: ESDC 13:10
PROVIDERS: ATTEND Orthopaedic Surgery Orthopaedic Surgery of the Spine
DX: M16.12 Unilateral primary osteoarthritis, left hip (principal)
CPT/HCPCS: 01200; 27275; 73502; 76000; J3301; Q9965

== ENCOUNTER 2017-01-14 20:24 | Inpatient (IN) | payer OTHER, MEDICARE ==
[~2017-01-14] VITALS: Ht 154.9 cm; Wt 86.4 kg
[~2017-01-14 20:24] MED LIST changes: -ACETAMINOPHEN/HYDROcodone 325 MG/5 MG TAB ONE; -IOHEXOL 180 MG/ML 20 ML VIAL (for RAD DIAG) OTHER ONE; -PROPOFOL 100 MG/10 ML INJ IV ONE; -TRIAMCINOLONE ACETONIDE 40 MG/ML VIAL ONE
[2017-01-14 20:28] VITALS: BP 135/75; PULSE 94; RESP 18; TEMP 97.7; O2SAT 93
[2017-01-14] MEDS ORDERED: TETANUS/DIPHTHERIA TOXOID ADULT 0.5 ML VIAL IM ONE (20:45)
--- NOTE | 2017-01-14 20:45 | PD ---
HPI Chief Complaint: Syncope/Near-Syncope Time Seen by Provider: 20:35 Travel History International Travel<30 days: No Contact w/Intl Traveler<30days: No Traveled to known affect area: No History of Present Illness HPI The patient is an 81-year-old female that may have fainted, she does not remember the episode other than that she ended up on the floor, hitting her face. She was walking with her walker She complains of swelling in the right orbital area and a forearm abrasion on the right. She denies any neck pain or numbness or weakness of any of her extremities. She states this happened once before. 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 She uses the oxygen continuously. PFSH Past Medical History Cancer: Yes (LYMPH NODES NECK, THYROID) Cardiovascular Problems: No High Cholesterol: Yes Diabetes: No Diminished Hearing: Yes (LEFT EAR) Endocrine: No Gastrointestinal Disorders: Yes (REFLUX) Genitourinary: No Hepatitis: No Hiatal Hernia: Yes Hypertension: Yes Immune Disorder: No Musculoskeletal: Yes (ARTHRITIS) Neurologic: No Psychiatric: No Reproductive: No Respiratory: Yes (COPD) Immunizations Current: Yes Thyroid Disease: Yes (CANCER) ?: Not Menopausal: Yes : 4 Para: 4 Miscarriage: 0 : 0 Tubal Ligation: Yes Past Surgical History AICD: No Body Medical Devices: CAGE IN BACK Gynecologic Surgery: Yes (HYSTERECTOMY,) Hysterectomy: Yes Joint Replacement: Yes (RIGHT HIP) Oral Surgery: Yes (THYROIDECTOMY, TONSILS,) Pacemaker: No Tonsillectomy: Yes Other Surgery: Yes ("1985,thyroid and lymph glands removed") Social History Alcohol Use: Yes (2 OZ PER DAY) Tobacco Use: No (quit 2006,was smoking one pack of cigarettes a day) Substance Use: No Allergies-Medications (Allergen,Severity, Reaction): Coded Allergies: ibuprofen (Unverified Allergy, Severe, DIZZYNESS, 01/14/17) penicillin G (Unverified Allergy, Severe, HIVES, 01/14/17) naproxen (Unverified Adverse Reaction, Severe, DIZZY, 01/14/17) Reported Meds & Prescriptions Reported Meds & Active Scripts Active Hydrocodone-Acetaminophen 5-325 mg Tab 1 Tab PO Q4H PRN Reported Hydralazine (Hydralazine HCl) 100 Mg Tab 25 Mg PO BID Take with meals Uloric (Febuxostat) 40 Mg Tab Lisinopril 40 Mg Tab 40 Mg PO DAILY Lasix (Furosemide) 40 Mg Tab 40 Mg PO DAILY Gabapentin 300 Mg Cap 300 Mg PO TID Simvastatin 40 Mg Tab 40 Mg PO HS Levothyroxine (Levothyroxine Sodium) 112 Mcg Tab 112 Mcg PO DAILY Tramadol (Tramadol HCl) 50 Mg Tab 100 Mg PO Q8HR PRN Review of Systems Except as stated in HPI: all other systems reviewed are Neg Physical Exam Narrative GENERAL: the patient is alert, oriented 3 and answers questions quickly and appropriately.her vital signs show pulse of 94 with oximetry 93% but otherwise normal. SKIN: Focused skin assessment warm/dry. HEAD: Atraumatic. Normocephalic. EYES: Pupils equal and round. No scleral icterus. No injection or drainage. The right eye lid was wedged open and the patient appears to have normal extraocular movements-there appears to be no entrapment. Upward gaze is normal and the patient denies any diplopia. ENT: No nasal bleeding or discharge. Mucous membranes pink and moist. The tympanic membranes are clear. There is no blood coursing down the posterior pharyngeal wall. NECK: Trachea midline. No JVD. CARDIOVASCULAR: Regular rate and rhythm. No murmur appreciated. RESPIRATORY: No accessory muscle use. Clear to auscultation. Breath sounds equal bilaterally. GASTROINTESTINAL: Abdomen soft, non-tender, nondistended. Hepatic and splenic margins not palpable. MUSCULOSKELETAL: No obvious deformities. No clubbing. No cyanosis. No edema. NEUROLOGICAL: Awake and alert. No obvious cranial nerve deficits. Motor grossly within normal limits. Normal speech. PSYCHIATRIC: Appropriate mood and affect; insight and judgment normal. Data Data Last Documented VS Vital Signs Date Time Temp Pulse Resp B/P (MAP) Pulse Ox O2 Delivery O2 Flow Rate FiO2 01/14/17 23:37 92 20 132/70 (90) 94 Nasal Cannula 3.00 01/14/17 20:[address] Brain W/O Iv Contrast(Rout) (01/14/17 20:35) Ct Facial Bones W/O Iv Cont (01/14/17 20:35) Wound Care (01/14/17 20:35) Tetanus/Diphtheria Tox Adult (Tetanus/Di (01/14/17 20:45) Electrocardiogram (01/14/17 20:45) Complete Blood Count With Diff (01/14/17 20:45) Comprehensive Metabolic Panel (01/14/17 20:45) Arterial Blood Gas (Abg) (01/14/17 20:45) Urinalysis - C+S If Indicated (01/14/17 20:45) Alcohol (Ethanol) (01/14/17 20:45) Prothrombin Time / Inr (Pt) (01/14/17:17) Act Partial Throm Time (Ptt) (01/14/17 23:17) Admit Order (Ed Use Only) (01/15/17 00:45) Tramadol (Ultram) (01/15/17 01:00) Labs Laboratory Tests Test 01/14/17 21:00 01/14/17 21:05 01/14/17 21:30 Blood Gas Puncture Site LT RADIAL Blood Gas Patient Temperature 98.6 Blood Gas HCO3 27 mmol/L Blood Gas Base Excess 1.8 mmol/L Blood Gas Oxygen Saturation 87 % Arterial Blood pH 7.37 Arterial Blood Partial Pressure CO2 47 mmHG Arterial Blood Partial Pressure O2 64 mmHG Arterial Blood Oxygen Content 16.4 Vol % Arterial Blood Carboxyhemoglobin 2.1 % Arterial Blood Methemoglobin 1.3 % Blood Gas Hemoglobin 13.5 G/DL Oxygen Delivery Device NASAL CANNULA Blood Gas Liter Flow 2.5 L/M Blood Urea Nitrogen 32 MG/DL Creatinine 1.00 MG/DL Random Glucose 144 MG/DL Total Protein 7.6 GM/DL Albumin 3.3 GM/DL Calcium Level 8.5 MG/DL Alkaline Phosphatase 117 U/L Aspartate Amino Transf (AST/SGOT) 20 U/L Alanine Aminotransferase (ALT/SGPT) 22 U/L Total Bilirubin 0.4 MG/DL Sodium Level 133 MEQ/L Potassium Level 4.2 MEQ/L Chloride Level 97 MEQ/L Carbon Dioxide Level 26.6 MEQ/L Anion Gap 9 MEQ/L Estimat Glomerular Filtration Rate 53 ML/MIN Ethyl Alcohol Level 119 MG/DL White Blood Count 9.5 TH/MM3 Red Blood Count 4.61 MIL/MM3 Hemoglobin 13.6 GM/DL Hematocrit 40.4 % Mean Corpuscular Volume 87.7 FL Mean Corpuscular Hemoglobin 29.5 PG Mean Corpuscular Hemoglobin Concent 33.6 % Red Cell Distribution Width 15.3 % Platelet Count 412 TH/MM3 Mean Platelet Volume 8.0 FL CBC Comment AUTO DIFF Differential Total Cells Counted 100 Neutrophils % (Manual) 81 % Band Neutrophils % 1 % Lymphocytes % 10 % Monocytes % 7 % Basophils % 1 % Neutrophils # (Manual) 7.8 TH/MM3 Differential Comment FINAL DIFF MANUAL Platelet Estimate NORMAL Platelet Morphology Comment CLUMPED Red Cell Morphology Comment NORMAL MDM Medical Decision Making Medical Screen Exam Complete: Yes Emergency Medical Condition: Yes Medical Record Reviewed: Yes Interpretation(s) The blood gases on 2.5 L show pH 7.37, CO2 47, PO2 64 with O2 sat 87% and carboxyhemoglobin level of 2.1. The CT brain shows no acute intracranial hemorrhage, it does show a hairline fracture of the right frontal bone and right orbital floor fracture. The CT of the facial bones shows a nondisplaced fracture of the right frontal bone with a right orbital floor fracture with fragment of the orbital floor displaced into the right maxillary sinus. There is inferior herniation of the inferior orbital musculature into the defect. The left orbit is unremarkable. Both globes are intact. There is left sphenoid sinus disease. The complete metabolic profile shows a BUN of 32, glucose 144, GFR 53, albumin 3.3 with sodium 133 but is otherwise normal. The alcohol level is 119. The CBC is normal. The EKG shows sinus rhythm with first -degree AV block and no acute ST elevation or depression. The patient has COPD and this pattern is consistent with pulmonary disease. Differential Diagnosis Syncopal spell secondary to: Alcohol intoxication, hypoxemia, electrolyte disorder, hypo-/hyperglycemia, cardiac syncope, anemia Narrative Course The patient may have had a syncopal spell secondary to alcohol intoxication. Cardiac syncope is possible but she did not feel any palpitations, dizziness or any other symptoms prior to her syncopal spell. She denies any chest pain. Hypoxemia is possible but the patient is likely use to this level of hypoxemia with her COPD. After multiple calls to Dr. Luly Lay, Dr. Breaux and Dr. Clayton as well as Jesenia we came up with what I feel is the best plan for the patient. She is to stay here at [facility] and Dr. Yañez will be consulted for the maxillofacial injury and he will reach out to the local community maxillofacial people to take this patient, hopefully today or tomorrow. Critical Care Narrative .Aggregate critical care time was 50 minutes. Time to perform other separately billable procedures was not included in the critical care time. My time did not include minutes spent treating any other patients simultaneously or on activities that did not directly contribute to the patient's treatment. The services I provided to this patient were to treat and/or prevent clinically significant deterioration that could result in: Loss of right eye I provided critical care services requiring my management, as noted below: Chart data review, documentation time, medication orders and management, vital sign assessments/reviewing monitor data, ordering and reviewing lab tests, ordering and interpreting/reviewing x-rays and diagnostic studies, care of the patient and discussion of the patient with the admitting physicians. Diagnosis Primary Impression: Fracture of right orbital floor Additional Impressions: Fracture of frontal bone COPD (chronic obstructive pulmonary disease) Hypoxemia Syncopal episodes Elevated blood alcohol level Admitting Information Admitting Physician Requests: Admit Kal Sultana MD Jan 14, 2017 20:45
[2017-01-14 21:13] LABS: BLOOD GAS BASE EXCESS 1.8 mmol/L (-2-2); BLOOD GAS CARBOXYHEMOGLOBIN 2.1 % (0-4); BLOOD GAS HCO3 27 mmol/L (22-26); BLOOD GAS METHEMOGLOBIN 1.3 % (0-2); BLOOD GAS O2 HGB SATURATION 87 % (90-100); BLOOD GAS OXYGEN CONTENT 16.4 Vol % (12.0-20.0); BLOOD GAS PCO2 47 mmHG (38-42); BLOOD GAS PO2 64 mmHG (61-120); BLOOD GAS TOTAL HGB 13.5 G/DL (12.0-16.0); TEMP CORR TO 98.6
[2017-01-14 21:14] LABS: CRITICAL VALUE YES; DRAW SITE LT RADIAL; LITER FLOW 2.5 L/M; NUMBER OF ARTERIAL PUNCTURES 1; OXYGEN DEVICE NASAL CANNULA; STAT YES; ULNAR PULSE PRESENT
[2017-01-14 21:25] LABS: CHLORIDE 97 MEQ/L (98-107); POTASSIUM 4.2 MEQ/L (3.5-5.1); SODIUM (NA) 133 MEQ/L (136-145)
[2017-01-14 21:29] LABS: ANION GAP 9 MEQ/L (5-15); BICARBONATE 26.6 MEQ/L (21.0-32.0); BLOOD UREA NITROGEN 32 MG/DL (7-18)
[2017-01-14 21:32] LABS: ALT (GPT) 22 U/L (10-53); AST (GOT) 20 U/L (15-37); GLOMERULAR FILTRATION RATE 53 ML/MIN (>89)
[2017-01-14 21:33] LABS: TOTAL BILIRUBIN ADULT 0.4 MG/DL (0.2-1.0)
[2017-01-14 21:34] LABS: ALKALINE PHOSPHATASE 117 U/L (45-117)
[2017-01-14 21:45] LABS: HEMATOCRIT 40.4 % (35.0-46.0); MEAN CELL VOLUME 87.7 FL (80.0-100.0); MEAN CORPUSCULAR HEMOGLOBIN 29.5 PG (27.0-34.0); MEAN CORPUSCULAR HGB CONC 33.6 % (32.0-36.0); RED BLOOD COUNT 4.61 MIL/MM3 (4.00-5.30); RED CELL DISTRIBUTION WIDTH 15.3 % (11.6-17.2)
--- NOTE | 2017-01-14 21:55 | PD ---
Physical Exam Date Seen by Provider: Jan 14, 2017 Narrative 81-year-old female presents to emergency department after fall. Patient has a laceration to her right lower orbit and upper eyelid. LACERATION LOCATION: Right lower orbit, one and half centimeters NUMBER OF STITCHES/DAYSI: 3 6-0 Prolene REPAIR: The area of the laceration was prepped with Betadine and sterilely draped. The laceration was infiltrated with 1% lidocaine. The wound was copiously irrigated and explored without evidence of foreign body, tendon injury or neurovascular injury. The wound was closed using 6-0 Prolene, Steri-Strips, and Dermabond applied. This was a single layer repair. A sterile dressing was applied. The patient was advised to keep the dressing clean and dry. Patient tolerated the procedure well. Laceration to the right upper eyelid 4 mm Site cleansed and explored of any debris or excessive injury. Dermabond applied with good approximation. Data Data Last Documented VS Vital Signs Date Time Temp Pulse Resp B/P (MAP) Pulse Ox O2 Delivery O2 Flow Rate FiO2 01/14/17 20:28 97.7 94 18 135/75 (95) [address] Brain W/O Iv Contrast(Rout) (01/14/17 20:35) Ct Facial Bones W/O Iv Cont (01/14/17 20:35) Wound Care (01/14/17 20:35) Tetanus/Diphtheria Tox Adult (Tetanus/Di (01/14/17 20:45) Electrocardiogram (01/14/17 20:45) Complete Blood Count With Diff (01/14/17 20:45) Comprehensive Metabolic Panel (01/14/17 20:45) Arterial Blood Gas (Abg) (01/14/17 20:45) Urinalysis - C+S If Indicated (01/14/17 20:45) Alcohol (Ethanol) (01/14/17 20:45) Labs Laboratory Tests Test 01/14/17 21:00 01/14/17 21:05 01/14/17 21:30 Blood Gas Puncture Site LT RADIAL Blood Gas Patient Temperature 98.6 Blood Gas HCO3 27 mmol/L Blood Gas Base Excess 1.8 mmol/L Blood Gas Oxygen Saturation 87 % Arterial Blood pH 7.37 Arterial Blood Partial Pressure CO2 47 mmHG Arterial Blood Partial Pressure O2 64 mmHG Arterial Blood Oxygen Content 16.4 Vol % Arterial Blood Carboxyhemoglobin 2.1 % Arterial Blood Methemoglobin 1.3 % Blood Gas Hemoglobin 13.5 G/DL Oxygen Delivery Device NASAL CANNULA Blood Gas Liter Flow 2.5 L/M Blood Urea Nitrogen 32 MG/DL Random Glucose 144 MG/DL Albumin 3.3 GM/DL Calcium Level 8.5 MG/DL Sodium Level 133 MEQ/L Potassium Level 4.2 MEQ/L Chloride Level 97 MEQ/L Carbon Dioxide Level 26.6 MEQ/L Anion Gap 9 MEQ/L [facility] Supervised Visit with IVANA: Yes Seda Monsalve Jan 14, 2017 21:55
[2017-01-14] MEDS ORDERED: HYDR-3801 PO (22:13)
[2017-01-14] MEDS ORDERED: ULOR40TA (22:13)
[2017-01-14] MEDS ORDERED: LISI40TA PO (22:13)
[2017-01-14 22:15] VITALS: BP 123/65; PULSE 90; RESP 20; O2SAT 95
[2017-01-14 22:19] LABS: ALCOHOL 119 MG/DL (0-5)
--- NOTE | 2017-01-14 22:49 | RADRPT ---
EXAM DATE/TIME: 01/14/2017 21:56 [facility] COMPARISON: No previous studies available for comparison. INDICATIONS : Trauma. Fall. Right orbital swelling. RADIATION DOSE: 34.82 CTDIvol (mGy) MEDICAL HISTORY : Congestive hearrt failure. Chronic obstructive pulmonary disease. Hypertension. SURGICAL HISTORY : None. ENCOUNTER: Initial ACUITY: 1 day PAIN SCORE: 4/10 LOCATION: Right orbit TECHNIQUE: Volumetric scanning of the facial bones was performed. Using automated exposure control and adjustme nt of the mA and/or kV according to patient size, radiation dose was kept as low as reasonably achiev able to obtain optimal diagnostic quality images. DICOM format image data is available electronicall y for review and comparison. FINDINGS: There is a nondisplaced hairline fracture of the right frontal bone. There is a right orbital floor f racture with fragment of the orbital floor displaced into the right maxillary sinus. There is inferio r herniation of the inferior orbital musculature into the defect but is unclear if there is entrapmen t. The left orbit unremarkable. There is right periorbital soft tissue swelling. Both globes intact. Septated left sphenoid sinus with left sphenoid sinus disease. CONCLUSION: 1. Large right orbital floor fracture with herniation of inferior right orbital musculature and fat i nto the herniation defect. It is unclear if there is entrapment. 2. Nondisplaced hairline right frontal bone fracture extending to superior right orbit. Max Harrison MD on January 14, 2017 at 22:42 Board Certified Radiologist. This report was verified electronically.
--- NOTE | 2017-01-14 22:51 | RADRPT ---
EXAM DATE/TIME: 01/14/2017 21:56 [facility] COMPARISON: No previous studies available for comparison. INDICATIONS : Trauma. Fall. Right orbital swelling. RADIATION DOSE: 57.09 CTDIvol (mGy) MEDICAL HISTORY : Hypertension. Congestive heart failure. Chronic obstructive pulmonary disease. SURGICAL HISTORY : None. ENCOUNTER: Initial ACUITY: 1 day PAIN SCALE: 4/10 LOCATION: Right frontal TECHNIQUE: Multiple contiguous axial images were obtained of the head. Using automated exposure control and adj ustment of the mA and/or kV according to patient size, radiation dose was kept as low as reasonably a chievable to obtain optimal diagnostic quality images. DICOM format image data is available electro nically for review and comparison. FINDINGS: There is a hairline fracture of the right frontal bone better seen on facial bone CT. Also right orbi dale floor fracture. No acute intracranial hemorrhage, mass or shift. No hydrocephalus. Sphenoid sinus disease. CONCLUSION No acute intracranial abnormalities. See facial bone CT report. Max Harrison MD on January 14, 2017 at 22:47 Board Certified Radiologist. This report was verified electronically.
[2017-01-14 22:55] LABS: HEMO FLAGS AUTO DIFF; WHITE BLOOD COUNT 9.5 TH/MM3 (4.0-11.0)
[2017-01-14 22:56] LABS: PLATELET COUNT 412 TH/MM3 (150-450)
[2017-01-14 23:11] LABS: BANDS 1 % (0-6); BASOPHILS 1 % (0-2); NEUTROPHIL # MANUAL DIFF 7.8 TH/MM3 (1.8-7.7); POLYS (SEG NEUTROPHILS) 81 % (16-70); WBC DIFF SAMPLE 100
[2017-01-14 23:13] LABS: PLATELET ESTIMATE SMEAR NORMAL (NORMAL); PLATELET MORPHOLOGY CLUMPED (NORMAL); SCAN/DIFF FINAL DIFF MANUAL
[2017-01-14 23:37] VITALS: BP 132/70; PULSE 92; RESP 20; O2SAT 94
[2017-01-15] VITALS (11 sets, daily range): BP systolic 142–172; BP diastolic 60–90; PULSE 65–96; RESP 16–22; TEMP 97.5–98.2; O2SAT 92–97
[2017-01-15] MEDS ORDERED: SODIUM CHLOR 0.9% 1000 ML INJ 1,000 ML IV SCH (00:55)
[2017-01-15] MEDS ORDERED: traMADol HCL 50 MG TAB PO ONE (01:00)
[2017-01-15] MEDS ORDERED: SENNOSIDES 8.6 MG TAB PO PRN (01:00)
[2017-01-15] MEDS ORDERED: MAGNESIUM HYDROXIDE SUSP 30 ML CUP PO PRN (01:00)
[2017-01-15] MEDS ORDERED: SODIUM CHLORIDE 0.9% FLUSH 10 ML FLUSH IV FLUSH PRN (01:00)
[2017-01-15] MEDS ORDERED: LACTULOSE SYRUP 20 GM/30 ML CUP PO PRN (01:00)
[2017-01-15] MEDS ORDERED: BISACODYL 10 MG SUPP RECTAL PRN (01:00)
[2017-01-15] MEDS ORDERED: MORPHINE SULFATE 4 MG/ML INJ IV PUSH PRN (01:00)
[2017-01-15 01:53] LABS: BLOOD, URINE TRACE (NEG); GLUCOSE,URINE NEG (NEG); KETONE, URINE NEG (NEG); NITRITE,URINE POS (NEG); PH, URINE 6.5 (5.0-8.5)
[2017-01-15 02:03] LABS: URINE COLOR YELLOW (YELLW/STRAW)
[2017-01-15 02:04] LABS: SQUAMOUS EPITHELIAL CELL URINE 0-5 /hpf (0-5)
[2017-01-15 02:05] LABS: BACTERIA, URINE MANY /hpf; COMMENT (UR) CULTURE INDICATED; CULTURE IF INDICATED CULTURE INDICATED; RBC, URINE 0-3 /hpf (0-3)
[2017-01-15 02:35] LABS: APTT (PATIENT) 24.6 SEC (24.3-30.1); INTERNATIONAL NORMALIZED RATIO 0.9 RATIO; PROTHROMBIN TIME - PATIENT 10.1 SEC (9.8-11.6)
[2017-01-15] MEDS: MORPHINE SULFATE 2 MG/ML INJ IV PRN (02:48)
[2017-01-15] MEDS: ONDANSETRON HCL 4 MG/2 ML VIAL IVP PRN ×2 (02:56→16:04)
[2017-01-15] MEDS: ACETAMINOPHEN/HYDROcodone 325 MG/5 MG TAB PO PRN ×2 (06:10→10:00)
[2017-01-15] MEDS: SODIUM CHLORIDE 0.9% FLUSH 10 ML FLUSH IV FLUSH SCH ×2 (09:00→20:15)
[2017-01-15] MEDS: DOCUSATE SODIUM 50 MG/SENNA 8.6 MG TAB PO SCH ×2 (10:01→20:16)
--- NOTE | 2017-01-15 10:27 | EKG ---
Date Performed: 01/14/2017 Time Performed: 20:55:37 PTAGE: 81 years EKG: Sinus rhythm WITH FIRST DEGREE AV BLOCK MARKED LEFT AXIS DEVIATION PATTERN CONSISTENT WITH PULMONARY DISEASE ABNO RMAL ECG Compared to prior tracing no significant change PREVIOUS TRACING : 06/11/2014 12.33 DOCTOR: Ish Garibay Interpretating Date/Time 01/15/2017 10:25:52
--- NOTE | 2017-01-15 11:43 | HHI.HP ---
[facility] Service [facility] [place] [facility] Primary Care Physician Grant Landaverde MD Admission Diagnosis orbital floor fracture, COPD, elevated alcohol level Diagnoses: Travel History International Travel<30 Days: No Contact w/Intl Traveler <30 Da: No Traveled to Known Affected Are: No History of Present Illness This is a pleasant 81 year-old female with past medical history of COPD on home oxygen who presents to the ER after a fall last night. The patient states that her sister was over visiting in the patient had bourbon with water and also a small amount of champagne. After her sister left she was walking across a wet floor and the next thing she knew she woke up on the floor with right eye pain. She managed to reach her cell phone and called 911. The patient denies any prodromal symptoms. Patient denies any chest pain, shortness of breath, pedal edema, palpitations. Patient does have a history of CHF followed by Dr. Valadez. Patient has pain in her right eye and cheek. Denies any double vision. No provocative factors. Symptoms moderate in intensity. In the emergency department maxillofacial CT revealed a large right orbital floor fracture with herniation of the inferior right orbital musculature and fat into the herniation defect, unclear if there was entrapment, also a nondisplaced hairline right frontal bone fracture extending to the superior right orbit. Patient states she's otherwise been in good health recently other than cancerous cells were found in her left breast after she underwent a biopsy. She is scheduled to see Dr. Vera for this next week. Review of Systems Constitutional: DENIES: Fever, Chills Eyes: DENIES: Blurred vision, Diplopia Ears, nose, mouth, throat: DENIES: Throat pain, Hoarseness Respiratory: DENIES: Cough, Shortness of breath Cardiovascular: DENIES: Chest pain, Palpitations Gastrointestinal: DENIES: Abdominal pain, Diarrhea Genitourinary: DENIES: Urgency, Dysuria Musculoskeletal: DENIES: Back pain, Neck pain Integumentary: DENIES: Rash Hematologic/lymphatic: DENIES: Lymphadenopathy Neurologic: DENIES: Abnormal gait, Headache Psychiatric: DENIES: Anxiety, Confusion Past Family Social History Past Medical History CHF followed by Dr. Valadez COPD on oxygen 2 L at home Left breast cancer to be followed up by Dr. Vera Hypothyroidism Hypertension GERD Past Surgical History Thyroidectomy 30 years ago, hysterectomy, back surgery, right hip replacement, tonsillectomy Allergies: Coded Allergies: ibuprofen (Unverified Allergy, Severe, DIZZYNESS, 01/14/17) penicillin G (Unverified Allergy, Severe, HIVES, 01/14/17) naproxen (Unverified Adverse Reaction, Severe, DIZZY, 01/14/17) Family History Reviewed and noncontributory Social History She drinks several alcoholic beverages a day Her in October Previous tobacco use Physical Exam Vital Signs Vital Signs Date Time Temp Pulse Resp B/P (MAP) Pulse Ox O2 Delivery O2 Flow Rate FiO2 01/15/17 08:00 98.2 91 18 142/77 (98) 93 01/15/17 06:00 96 17 97 01/15/17 04:13 97.5 92 17 150/79 (102) 95 01/15/17 02:00 90 16 158/76 (103) 95 01/15/17 02:00 92 Nasal Cannula 3.00 01/15/17 01:35 98.0 90 22 152/85 (107) 93 01/15/17 01:17 01/15/17 01:03 92 20 172/84 (113) 97 Nasal Cannula 3.00 01/14/17 23:37 92 20 132/70 (90) 94 Nasal Cannula 3.00 01/14/17 22:15 90 20 123/65 (84) 95 Nasal Cannula 3.00 01/14/17 21:48 96 Nasal Cannula 3.00 01/14/17 20:28 97.7 94 18 135/75 (95) 93 Physical Exam GENERAL: This is a well-nourished, well-developed pleasant elderly female patient, in no apparent distress. SKIN: No rashes, ecchymoses or lesions. Cool and dry. HEAD: EYES: Patient has right periorbital edema with associated chemosis. Pupils equal round and reactive. Extraocular motions intact. ENT: Nose without bleeding, purulent drainage or septal hematoma. Throat without erythema, tonsillar hypertrophy or exudate. Uvula midline. Airway patent. NECK: Trachea midline. No JVD or lymphadenopathy. Supple, nontender, no meningeal signs. CARDIOVASCULAR: Regular rate and rhythm without murmurs, gallops, or rubs. RESPIRATORY: Clear to auscultation. Breath sounds equal bilaterally. No wheezes , rales, or rhonchi. GASTROINTESTINAL: Abdomen soft, non-tender, nondistended. No hepato-splenomegaly , or palpable masses. No guarding. MUSCULOSKELETAL: Extremities without clubbing, cyanosis, or edema. No joint tenderness, effusion, or edema noted. NEUROLOGICAL: Awake and alert. Motor and sensory grossly within normal limits. Normal speech. Laboratory Laboratory Tests Test 01/14/17 21:00 01/14/17 21:05 01/14/17 21:30 01/15/17 01:34 Blood Gas Puncture Site LT RADIAL Blood Gas Patient Temperature 98.6 Blood Gas HCO3 27 Blood Gas Base Excess 1.8 Blood Gas Oxygen Saturation 87 Arterial Blood pH 7.37 Arterial Blood Partial Pressure CO2 47 Arterial Blood Partial Pressure O2 64 Arterial Blood Oxygen Content 16.4 Arterial Blood Carboxyhemoglobin 2.1 Arterial Blood Methemoglobin 1.3 Blood Gas Hemoglobin 13.5 Oxygen Delivery Device NASAL CANNULA Blood Gas Liter Flow 2.5 Blood Urea Nitrogen 32 Creatinine 1.00 Random Glucose 144 Total Protein 7.6 Albumin 3.3 Calcium Level 8.5 Alkaline Phosphatase 117 Aspartate Amino Transf (AST/SGOT) 20 Alanine Aminotransferase (ALT/SGPT) 22 Total Bilirubin 0.4 Sodium Level 133 Potassium Level 4.2 Chloride Level 97 Carbon Dioxide Level 26.6 Anion Gap 9 Estimat Glomerular Filtration Rate 53 Ethyl Alcohol Level 119 White Blood Count 9.5 Red Blood Count 4.61 Hemoglobin 13.6 Hematocrit 40.4 Mean Corpuscular Volume 87.7 Mean Corpuscular Hemoglobin 29.5 Mean Corpuscular Hemoglobin Concent 33.6 Red Cell Distribution Width 15.3 Platelet Count 412 Mean Platelet Volume 8.0 CBC Comment AUTO DIFF Differential Total Cells Counted 100 Neutrophils % (Manual) 81 Band Neutrophils % 1 Lymphocytes % 10 Monocytes % 7 Basophils % 1 Neutrophils # (Manual) 7.8 Differential Comment FINAL DIFF MANUAL Platelet Estimate NORMAL Platelet Morphology Comment CLUMPED Red Cell Morphology Comment NORMAL Urine Color YELLOW Urine Turbidity SLIGHT Urine pH 6.5 Urine Specific [place] 1.018 Urine Protein 100 Urine Glucose (UA) NEG Urine Ketones NEG Urine Occult Blood TRACE Urine Nitrite POS Urine Bilirubin NEG Urine Leukocyte Esterase NEG Urine RBC 0-3 Urine WBC 6-8 Urine WBC Clumps OCC Urine Squamous Epithelial Cells 0-5 Urine Bacteria MANY Microscopic Urinalysis Comment CULTURE INDICATED Test 01/15/17 01:40 Prothrombin Time 10.1 Prothromb Time International Ratio 0.9 Activated Partial Thromboplast Time 24.6 Date/Time Source Procedure Growth Status 01/15/17 01:34 Urine Clean Catch Urine Culture Pending Received Result Diagram: 01/14/17212901/14/172104 Imaging Last Impressions Maxillofacial CT 01/14/172034 Signed Impressions: Service Date/Time: Saturday, January 14, 2017 21:56 - CONCLUSION: 1. Large right orbital floor fracture with herniation of inferior right orbital musculature and fat into the herniation defect. It is unclear if there is entrapment. 2. Nondisplaced hairline right frontal bone fracture extending to superior right orbit. Max Harrison MD Head CT 01/14/172034 Signed Impressions: Service Date/Time: Saturday, January 14, 2017 21:56 - CONCLUSION: MD Van VTE Risk Assessment Caprini VTE Risk Assessment: Mod/High Risk (score >= 2) Caprini Risk Assessment Model Point Value = 1 Point Value = 2 Point Value = 3 Point Value = 5 Age 41-60 Minor surgery BMI > 25 kg/m2 Swollen legs Varicose veins or History of unexplained or recurrent spontaneous Oral contraceptives or hormone replacement Sepsis (< 1 month) Serious lung disease, including pneumonia (< 1 month) Abnormal pulmonary function Acute myocardial infarction Congestive heart failure (< 1 month) History of inflammatory bowel disease Medical patient at bed rest Age 61-74 Arthroscopic surgery Major open surgery (> 45 min) Laparoscopic surgery (> 45 min) Malignancy Confined to bed (> 72 hours) Immobilizing plaster cast Central venous access Age >= 75 History of VTE Family history of VTE Factor V Leiden Prothrombin [id number] Lupus anticoagulant Anticardiolipin antibodies Elevated serum homocysteine Heparin-induced thrombocytopenia Other congenital or acquired thrombophilia Stroke (< 1 month) Elective arthroplasty Hip, pelvis, or leg fracture Acute spinal cord injury (< 1 month) Prophylaxis Regimen Total Risk Factor Score Risk Level Prophylaxis Regimen 0-1 Low Early ambulation 2 Moderate Order ONE of the following: *Sequential Compression Device (SCD) *Heparin 5000 units SQ BID 3-4 Higher Order ONE of the following medications: *Heparin 5000 units SQ TID *Enoxaparin/Lovenox 40 mg SQ daily (WT < 150 kg, CrCl > 30 mL/min) *Enoxaparin/Lovenox 30 mg SQ daily (WT < 150 kg, CrCl > 10-29 mL/min) *Enoxaparin/Lovenox 30 mg SQ BID (WT < 150 kg, CrCl > 30 mL/min) AND/OR *Sequential Compression Device (SCD) 5 or more Highest Order ONE of the following medications: *Heparin 5000 units SQ TID (Preferred with Epidurals) *Enoxaparin/Lovenox 40 mg SQ daily (WT < 150 kg, CrCl > 30 mL/min) *Enoxaparin/Lovenox 30 mg SQ daily (WT < 150 kg, CrCl > 10-29 mL/min) *Enoxaparin/Lovenox 30 mg SQ BID (WT < 150 kg, CrCl > 30 mL/min) AND *Sequential Compression Device (SCD) Assessment and Plan Assessment and Plan -Large right orbital floor fracture status post fall. Management as per surgery. -Possible UTI. Start Cipro. -Possible syncope versus fall from alcohol intoxication - monitor on telemetry, check a 2-D echocardiogram. CHF followed by Dr. Valadez - currently fluid compensated will Hep-Lock IV. Resume Lasix. COPD on oxygen 2 L at home - continue oxygen, DuoNeb's when necessary Left breast cancer to be followed up by Dr. Vera Hypothyroidism - continue Synthroid Hypertension - resume lisinopril and hydralazine. DVT prophylaxis with SCDs. Enedelia Grijalva MD Jan 15, 2017 11:43
[2017-01-15] MEDS: CIPROFLOXACIN 200 MG PREMIX 100 ML IV SCH (14:00)
[2017-01-15] MEDS: ACETAMINOPHEN/HYDROcodone 325 MG/10 MG TAB PO PRN ×2 (14:00→20:16)
[2017-01-15] MEDS ORDERED: cloNIDine HCL 0.1 MG TAB PO PRN (17:30)
[2017-01-15] MEDS: ACETAMINOPHEN 325 MG TAB PO PRN (19:28)
[2017-01-15] MEDS: hydrALAZINE HCL 25 MG TAB PO SCH (20:17)
[2017-01-15] MEDS ORDERED: PRAVASTATIN SOD 80 MG TAB PO SCH (21:00)
[2017-01-16] VITALS: BP 119/65; PULSE 76; RESP 16; TEMP 97.9; O2SAT 92
[2017-01-16] MEDS: ONDANSETRON HCL 4 MG/2 ML VIAL IVP PRN (00:17)
[2017-01-16] MEDS: MORPHINE SULFATE 2 MG/ML INJ IV PRN (00:18)
[2017-01-16] MEDS: CIPROFLOXACIN 200 MG PREMIX 100 ML IV SCH (00:20)
[2017-01-16] MEDS: ACETAMINOPHEN/HYDROcodone 325 MG/10 MG TAB PO PRN ×2 (03:41→09:35)
[2017-01-16 04:00] VITALS: BP 151/85; PULSE 74; RESP 18; TEMP 97.7; O2SAT 97
[2017-01-16 04:56] LABS: CHLORIDE 100 MEQ/L (98-107); POTASSIUM 4.4 MEQ/L (3.5-5.1); SODIUM (NA) 136 MEQ/L (136-145)
[2017-01-16 04:59] LABS: ANION GAP 3 MEQ/L (5-15); BICARBONATE 32.8 MEQ/L (21.0-32.0)
[2017-01-16 05:10] LABS: ALKALINE PHOSPHATASE 94 U/L (45-117); ALT (GPT) 17 U/L (10-53); AST (GOT) 16 U/L (15-37); BLOOD UREA NITROGEN 12 MG/DL (7-18); GLOMERULAR FILTRATION RATE 94 ML/MIN (>89); TOTAL BILIRUBIN ADULT 0.5 MG/DL (0.2-1.0)
--- NOTE | 2017-01-16 05:20 | MB ---
cc: DUTCH BREAUX MD DATE OF CONSULTATION 01/15/[address] Breaux, Trauma Surgery REASON FOR CONSULTATION Fall and fracture of the inferior orbital floorm, partial entrapment of the eye. HISTORY OF PRESENT DISEASE This 81-year-old lady apparently had a drink or two at home with her friends and then lost her balance in the living room, fell face first, was transferred to our institution and evaluated. She is found to have fracture of the orbit, hence the consultation. PAST MEDICAL HISTORY 1. Reflux. 2. COPD. 3. Carcinoma of the thyroid. 4. Diminished hearing. SURGICAL HISTORY 1. Hysterectomy. 2. Thyroidectomy. 3. Right hip replacement. 4. Lumbar laminectomy with fusion. SOCIAL HISTORY The patient does not smoke for the last 10 years. Drinks socially. MEDICATIONS Medications can be found on the record. PHYSICAL EXAMINATION GENERAL: A pleasant 81-year-old lady, awake, alert, oriented. HEENT: Normocephalic. Trauma to the head consisting of bruising over her right side of the face which is fairly visible and minimal excoriations. Pupils are equal and reactive. Extraocular muscles on the left are intact. On the right side the patient has limitation of upward gaze consistent with partial entrapment of the inferior oblique muscle. Tender over the right cheek. No hemotympanum. No Dao sign. No raccoon's eyes. NECK: Bilateral carotid pulses. No bruits. CHEST: Bilateral breath sounds decreased over both lung bhagat consistent with moderate degree of pulmonary emphysema. HEART: Regular rhythm. ABDOMEN: Soft. Active bowel sounds. No rebound, no guarding, no masses. EXTREMITIES: Grossly within normal limits with proximal and distal pulses. No signs of acute vascular deficit. The patient has some healed venous stasis ulcers on both legs, right more than left. Hemosiderosis and signs of chronic venous insufficiency. BACK: Normal. Scars from previous surgery noted. NEUROLOGIC EXAM: The patient is neurologically fully intact. [place] coma scale is 15. II through XII of cranial nerves are intact with exception of the oculomotorius but this is not due to the nerve deficiencies, due to the entrapment of the inferior oblique muscle. Motorically she is fully otherwise intact. Sensory preserved. IMPRESSION AND RECOMMENDATIONS I reviewed laboratory and diagnostic procedures on this lady. She indeed has a small frontal bone fracture which is nondisplaced and nothing needs to be done about it. She has no intracranial bleed and neurologically she is intact. She does have some bleeding in the sclera of the eye and from the resulting fall fracture of the orbit with breach of the orbital floor. This has resulted in partial entrapment of the inferior oblique muscle. At this point the patient can be discharged safely home and she can follow up with Dr. Isbell the oral/maxillofacial surgeon. The majority of the inferior orbital floor fractures will resolve on their own and if there is any entrapment it will also resolve on its own without any surgery. A few patients will remain entrapped and those are the ones who require surgery. This will be something that does not need to be done on an emergency basis and should be done on an elective basis. I will discuss the case also with Dr. Isbell so he knows about the referral. I thank you much for the referral. Dutch GARAY/CLIFFORD /5:42 PM /5:02 AM
[2017-01-16 08:00] VITALS: BP 148/74; PULSE 71; PULSE 77; RESP 20; TEMP 98.2; O2SAT 97
[2017-01-16] MEDS: ACETAMINOPHEN 325 MG TAB PO PRN (08:00)
[2017-01-16] MEDS: SODIUM CHLORIDE 0.9% FLUSH 10 ML FLUSH IV FLUSH SCH (08:01)
[2017-01-16] MEDS: hydrALAZINE HCL 25 MG TAB PO SCH (08:01)
[2017-01-16] MEDS: DOCUSATE SODIUM 50 MG/SENNA 8.6 MG TAB PO SCH (08:01)
[2017-01-16 08:09] LABS: HEMATOCRIT 38.1 % (35.0-46.0); MEAN CELL VOLUME 88.6 FL (80.0-100.0); MEAN CORPUSCULAR HEMOGLOBIN 28.7 PG (27.0-34.0); MEAN CORPUSCULAR HGB CONC 32.4 % (32.0-36.0); RED CELL DISTRIBUTION WIDTH 15.1 % (11.6-17.2)
[2017-01-16 08:27] LABS: WHITE BLOOD COUNT 8.6 TH/MM3 (4.0-11.0)
[2017-01-16 08:28] LABS: PLATELET COUNT 372 TH/MM3 (150-450)
[2017-01-16 08:29] LABS: HEMO FLAGS AUTO DIFF
[2017-01-16] MEDS ORDERED: LISINOPRIL 20 MG TAB PO SCH (09:00)
[2017-01-16] MEDS ORDERED: FUROSEMIDE 40 MG TAB PO SCH (09:00)
[2017-01-16 09:10] LABS: BANDS 2 % (0-6); EOSINOPHILS 1 % (0-4); NEUTROPHIL # MANUAL DIFF 7.3 TH/MM3 (1.8-7.7); OVALOCYTES 1+ (NORMAL); POLYS (SEG NEUTROPHILS) 83 % (16-70); WBC DIFF SAMPLE 100
[2017-01-16 09:11] LABS: PLATELET ESTIMATE SMEAR NORMAL (NORMAL); PLATELET MORPHOLOGY CLUMPED (NORMAL); SCAN/DIFF FINAL DIFF MANUAL
--- NOTE | 2017-01-16 09:43 | HHI.PR ---
Subjective Remarks Patient feels better, less swelling to right eye and less pain. Wants to home, sister coming to pick her up. Objective Vitals Vital Signs Date Time Temp Pulse Resp B/P (MAP) Pulse Ox O2 Delivery O2 Flow Rate FiO2 01/16/17 09:06 20 01/16/17 08:00 98.2 77 20 148/74 (98) 97 01/16/17 08:00 71 01/16/17 07:00 Nasal Cannula 3.00 01/16/17 04:00 97.7 74 18 151/85 (107) 97 01/16/17 00:00 97.9 76 16 119/65 (83) 92 01/15/17 20:15 80 01/15/17 20:11 96 Nasal Cannula 3.00 01/15/17 20:00 95 Nasal Cannula 3.00 01/15/17 20:00 98.2 79 16 164/60 (94) 95 01/15/17 16:00 85 18 172/90 (117) 96 01/15/17 12:00 65 18 171/75 (107) 96 I/O 01/15/17 01/15/17 01/15/17 01/16/17 01/16/17 01/16/17 07:00 15:00 23:00 07:00 15:00 23:00 Intake Total 430 ml 500 ml 240 ml 300 ml Output Total 500 ml 990 ml Balance -70 ml 500 ml -750 ml 300 ml Intake Oral 240 ml 200 ml IV Total 430 ml 500 ml 100 ml Output Urine Total 500 ml 990 ml # Voids 2 5 # Bowel Movements 0 1 0 Result Diagram: 01/16/17 0730 01/16/17 0430 Objective Remarks GENERAL: This is a well-nourished, well-developed pleasant elderly female patient, in no apparent distress. SKIN: No rashes, ecchymoses or lesions. Cool and dry. HEAD: EYES: Patient has right periorbital edema with associated ecchymosis, swelling decreased today. Pupils equal round and reactive. Extraocular motions intact. ENT: Nose without bleeding, purulent drainage or septal hematoma. Throat without erythema, tonsillar hypertrophy or exudate. Uvula midline. Airway patent. NECK: Trachea midline. No JVD or lymphadenopathy. Supple, nontender, no meningeal signs. CARDIOVASCULAR: Regular rate and rhythm without murmurs, gallops, or rubs. RESPIRATORY: Clear to auscultation. Breath sounds equal bilaterally. No wheezes , rales, or rhonchi. GASTROINTESTINAL: Abdomen soft, non-tender, nondistended. No hepato-splenomegaly , or palpable masses. No guarding. MUSCULOSKELETAL: Extremities without clubbing, cyanosis, or edema. No joint tenderness, effusion, or edema noted. NEUROLOGICAL: Awake and alert. Motor and sensory grossly within normal limits. Normal speech. A/P Assessment and Plan -Large right orbital floor fracture status post fall. per trauma surgery Dr. Lees, does not require surgery, patient is to f/u with Dr. Isbell. -Possible UTI. Start Cipro. -Possible syncope versus fall from alcohol intoxication - monitor on telemetry, patient declines 2-D echocardiogram - states she wants to f/u with her senior branch manager Dr. Valadez instead. CHF followed by Dr. Valadez - currently fluid compensated. cont Lasix. COPD on oxygen 2 L at home - continue oxygen, DuoNeb's when necessary Left breast cancer to be followed up by Dr. Vera Hypothyroidism - continue Synthroid Hypertension - resume lisinopril and hydralazine. DVT prophylaxis with SCDs. Discharge Planning DC home today. F/u with Dr. Isbell within 1 week. F/u with senior branch manager Dr. Valadez in 1 week. Enedelia Grijalva MD Jan 16, 2017 09:43
[2017-01-16] MEDS ORDERED: CIPR250T52 PO (09:45)
[2017-01-16 10:49] VITALS: RESP 18
== END 2017-01-16 11:50 | disposition home or self-care (01) | DRG 125 ==
LOC: PHED 20:24 → PHEDA 01-15 00:50 → PHICU 01-15 01:20
PROVIDERS: ADMIT Family Medicine; ATTEND Family Medicine
PROC: 0HQ1XZZ Repair Face Skin, External Approach (ICD-10-PCS; principal; 2017-01-14)
DX: S02.31XA Fracture of orbital floor, right side, initial encounter for closed fracture (principal); I11.0 Hypertensive heart disease with heart failure; I50.9 Heart failure, unspecified; N39.0 Urinary tract infection, site not specified; S02.0XXA Fracture of vault of skull, initial encounter for closed fracture; Z99.81 Dependence on supplemental oxygen; J44.9 Chronic obstructive pulmonary disease, unspecified; W19.XXXA Unspecified fall, initial encounter; Y90.5 Blood alcohol level of 100-119 mg/100 ml; R09.02 Hypoxemia; E89.0 Postprocedural hypothyroidism; Z96.641 Presence of right artificial hip joint; M19.90 Unspecified osteoarthritis, unspecified site; K21.9 Gastro-esophageal reflux disease without esophagitis; S50.811A Abrasion of right forearm, initial encounter; S01.111A Laceration without foreign body of right eyelid and periocular area, initial encounter; C50.912 Malignant neoplasm of unspecified site of left female breast; H91.92 Unspecified hearing loss, left ear; E78.00 Pure hypercholesterolemia, unspecified; R55 Syncope and collapse; R78.0 Finding of alcohol in blood; Z85.850 Personal history of malignant neoplasm of thyroid; Z87.891 Personal history of nicotine dependence
CPT/HCPCS: 12011; 36600; 70450; 70486; 80053; 80307; 81001; 82805; 85007; 85027; 85610; 85730; 87077; 87086; 87186; 93005; J0744; J2270; J2405; J7030

== ENCOUNTER 2017-02-08 14:16 | Emergency (ER) | payer OTHER ==
[~2017-02-08] VITALS: Ht 154.9 cm; Wt 84.0 kg
[~2017-02-08 14:16] MED LIST changes: -ALLO100T PO
[2017-02-08] MEDS ORDERED: IOHEXOL 350 MG/ML 10 ML VIAL (for RAD DIAG) IVCONTRAST ONE (14:17)
[2017-02-08 14:26] VITALS: BP 125/88; PULSE 101; RESP 18; TEMP 98.2; O2SAT 95
[2017-02-08] MEDS ORDERED: SODIUM CHLORIDE 0.9% FLUSH 10 ML FLUSH IVF PRN (14:45)
--- NOTE | 2017-02-08 15:12 | PD ---
HPI Chief Complaint: Cardiac Complaint Time Seen by Provider: 14:36 Travel History International Travel<30 days: No Contact w/Intl Traveler<30days: No Traveled to known affect area: No History of Present Illness HPI 81-year-old female that presents to the ED for evaluation of tachycardia. Patient was seen today at [facility] for surgery. Patient was there to have a lumpectomy. Per patient she doesn't really have any pain. Per patient when she was seen by the anesthesiologist she had tachycardia. Per patient her heart rate going from the 90s to the 150s. Dr. Vera was given IV doing the surgery and he recommended against that because the tachycardia. She denies any history of major fibrillation. No medical issues. No chest pain or shortness of breath. She does have chronic COPD and CHF. She states compliance with her medications. She is sitting blood thinners but not anymore. She denies any palpitations. Per patient she's never been told this before. She follows with Dr. Valadez for cardiology. Denies any numbness, tingling, weakness. She does state that she had a fall in January 14 and had a fracture to her right face that requires no surgery. She denies any other injury. No other medical issues. She did have hip injection for which she had to be put under on December as well. PFSH Past Medical History Arthritis: Yes Cancer: Yes (LYMPH NODES NECK, THYROID. L breast biopsy few weeks ago) Cardiovascular Problems: Yes High Cholesterol: Yes Congestive Heart Failure: Yes COPD: Yes Diabetes: No Diminished Hearing: Yes (LEFT EAR) Endocrine: Yes Gastrointestinal Disorders: Yes (REFLUX) Gout: Yes Genitourinary: Yes Hepatitis: No Hiatal Hernia: Yes Hypertension: Yes Immune Disorder: No Musculoskeletal: Yes (ARTHRITIS, R hip replacement) Neurologic: No Psychiatric: No Reproductive: No Respiratory: Yes (COPD, on home O2 continuous) Immunizations Current: Yes Myocardial Infarction: Yes Thyroid Disease: Yes (CANCER age 50, thyroidectomy and lymph nodes) Menopausal: Yes : 4 Para: 4 Miscarriage: 0 : 0 Tubal Ligation: Yes Past Surgical History Abdominal Surgery: No AICD: No Body Medical Devices: CAGE IN BACK Cardiac Surgery: No Genitourinary Surgery: No Gynecologic Surgery: Yes (HYSTERECTOMY) Hysterectomy: Yes Joint Replacement: Yes (RIGHT HIP X2) Oral Surgery: Yes (THYROIDECTOMY, TONSILS) Pacemaker: No Thoracic Surgery: No Tonsillectomy: Yes Other Surgery: Yes ("1984,thyroid and lymph glands removed", bunionectomy X 2) Social History Alcohol Use: Yes (2-3 OZ PER DAY) Tobacco Use: No (quit 2006,was smoking one pack of cigarettes a day) Substance Use: No Allergies-Medications (Allergen,Severity, Reaction): Coded Allergies: ibuprofen (Unverified Allergy, Severe, DIZZYNESS, 01/14/17) penicillin G (Unverified Allergy, Severe, HIVES, 01/14/17) naproxen (Unverified Adverse Reaction, Severe, DIZZY, 01/14/17) Reported Meds & Prescriptions Reported Meds & Active Scripts Active Cipro (Ciprofloxacin HCl) 250 Mg Tab 250 Mg PO BID Hydrocodone-Acetaminophen 5-325 mg Tab 1 Tab PO Q4H PRN Reported Hydralazine (Hydralazine HCl) 100 Mg Tab 25 Mg PO BID Take with meals Uloric (Febuxostat) 40 Mg Tab Lisinopril 40 Mg Tab 40 Mg PO DAILY Lasix (Furosemide) 40 Mg Tab 40 Mg PO DAILY Gabapentin 300 Mg Cap 300 Mg PO TID Simvastatin 40 Mg Tab 40 Mg PO HS Levothyroxine (Levothyroxine Sodium) 112 Mcg Tab 112 Mcg PO DAILY Tramadol (Tramadol HCl) 50 Mg Tab 100 Mg PO Q8HR PRN Review of Systems Except as stated in HPI: all other systems reviewed are Neg Physical Exam Narrative GENERAL: SKIN: Warm and dry. HEAD: Atraumatic. Normocephalic. EYES: Pupils equal and round. No scleral icterus. No injection or drainage. ENT: No nasal bleeding or discharge. Mucous membranes pink and moist. Tongue is midline. No uvula deviation. NECK: Trachea midline. No JVD. CARDIOVASCULAR: Tachycardic rate and rhythm. No murmurs, S3, S4. RESPIRATORY: No accessory muscle use. Clear to auscultation. Breath sounds equal bilaterally. GASTROINTESTINAL: Abdomen soft, non-tender, nondistended. Hepatic and splenic margins not palpable. MUSCULOSKELETAL: Extremities without clubbing, cyanosis, or edema. No obvious deformities. Full range of motion of the upper and lower extremities bilaterally. 2+ pulses bilaterally. NEUROLOGICAL: Awake and alert. No obvious cranial nerve deficits. Motor grossly within normal limits. Five out of 5 muscle strength in the arms and legs. Normal speech. PSYCHIATRIC: Appropriate mood and affect; insight and judgment normal. Data Data Last Documented VS Vital Signs Date Time Temp Pulse Resp B/P (MAP) Pulse Ox O2 Delivery O2 Flow Rate FiO2 02/08/17 14:26 98.2 101 18 125/88 (100) 95 Orders Orders Electrocardiogram (02/08/17 14:36) Basic Metabolic Panel (Bmp) (02/08/17 14:36) B-Type Natriuretic Peptide (02/08/17 14:36) Ckmb (Isoenzyme) Profile (02/08/17 14:36) Complete Blood Count With Diff (02/08/17 14:36) Magnesium (Mg) (02/08/17 14:36) Prothrombin Time / Inr (Pt) (02/08/17 14:36) Act Partial Throm Time (Ptt) (02/08/17 14:36) Troponin I (02/08/17 14:36) Chest, Single Ap (02/08/17 14:36) Ecg Monitoring (02/08/17 14:36) Bilateral Bp Monitoring (02/08/17 14:36) Iv Access Insert/Monitor (02/08/17 14:36) Oximetry (02/08/17 14:36) Oxygen Administration (02/08/17 14:36) Sodium Chloride 0.9% Flush (Ns Flush) (02/08/17 14:45) Vascular Access Team Consult/P PRN (02/08/17 14:42) Vascular Poc Ultrasound (02/08/17 ) MDM Medical Decision Making Medical Screen Exam Complete: Yes Emergency Medical Condition: Yes Medical Record Reviewed: Yes Differential Diagnosis Tachycardia versus atrial fibrillation versus arrhythmia versus tachyarrhythmia versus ACS versus PE versus normal exam Narrative Course 81-year-old female that presents to the ED for evaluation of tachycardia. Patient was properly examined and was found to have signs and symptoms of concurrent etiology at this time. Patient slightly tachycardic on exam but appears to be sinus. Patient had an evaluation by anesthesiology the found that her heart rate was elevated. Case will be signed out to incoming provider. Labs were ordered. EKG was ordered. Patient again is symptomatic at this time. Unclear etiology of symptoms. Matthew Sims Feb 08, 2017 15:12
[2017-02-08 15:19] VITALS: BP 128/71; PULSE 100; RESP 16; O2SAT 94
[2017-02-08 15:23] VITALS: O2SAT 96
[2017-02-08] MEDS ORDERED: ALLO100T PO (15:34)
--- NOTE | 2017-02-08 15:51 | RADRPT ---
EXAM DATE/TIME: 02/08/2017 15:27 [facility] COMPARISON: HIP LEFT (AP&LAT 2/3VWS) WO AP PELVIS, January 05, 2017, 14:51. INDICATIONS : Irratic heart rate. Suppose to have left breast lumpectomy today,. Sent by the dr. MEDICAL HISTORY : Hypertension. Chronic obstructive pulmonary disease. Congestive heart failure. thyroid cancer yea r SURGICAL HISTORY : None. ENCOUNTER: Initial ACUITY: 1 day PAIN SCORE: 0/10 LOCATION: Bilateral chest FINDINGS: The heart is enlarged. There are chronic interstitial changes. The lungs are otherwise clear. The vis ualized bony structures are grossly intact. 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 CONCLUSION: 1. Cardiomegaly and COPD changes. Ron Carson MD on February 08, 2017 at 15:48 Board Certified Radiologist. This report was verified electronically.
[2017-02-08 15:57] LABS: APTT (PATIENT) 27.5 SEC (24.3-30.1); INTERNATIONAL NORMALIZED RATIO 0.9 RATIO; PROTHROMBIN TIME - PATIENT 10.3 SEC (9.8-11.6)
--- NOTE | 2017-02-08 16:03 | PD ---
HPI Chief Complaint: Cardiac Complaint Time Seen by Provider: 15:58 Travel History International Travel<30 days: No Contact w/Intl Traveler<30days: No Traveled to known affect area: No History of Present Illness HPI 81-year-old female previously seen by Matthew Sims PA-C in the [facility], with reports of tachycardia, after attending a preop for lumpectomy for recently diagnosed cancer of the left breast. The procedure was canceled due to the patient's tachycardic findings. Denies shortness of breath , chest pain, or chest pressure. She does take spironolactone, and is treated for COPD. The patient does have a history of syncope with facial trauma and the end of December worked up at [facility]. Patient denies previous cardiac history. Labs were previously ordered by Matthew Sims PA-C. Patient is allergic to ibuprofen, Naprosyn, and penicillin. PFSH Past Medical History Arthritis: Yes Cancer: Yes (LYMPH NODES NECK, THYROID. L breast biopsy few weeks ago) Cardiovascular Problems: Yes High Cholesterol: Yes Congestive Heart Failure: Yes COPD: Yes Diabetes: No Diminished Hearing: Yes (LEFT EAR) Endocrine: Yes Gastrointestinal Disorders: Yes (REFLUX) Gout: Yes Genitourinary: Yes Hepatitis: No Hiatal Hernia: Yes Hypertension: Yes Immune Disorder: No Implanted Vascular Access Dvce: Yes Musculoskeletal: Yes (ARTHRITIS, R hip replacement) Neurologic: No Psychiatric: No Reproductive: No Respiratory: Yes (COPD, on home O2 continuous) Immunizations Current: Yes Myocardial Infarction: Yes Thyroid Disease: Yes (CANCER age 50, thyroidectomy and lymph nodes) Menopausal: Yes : 4 Para: 4 Miscarriage: 0 : 0 Tubal Ligation: Yes Past Surgical History Abdominal Surgery: No AICD: No Body Medical Devices: CAGE IN BACK Cardiac Surgery: No Genitourinary Surgery: No Gynecologic Surgery: Yes (HYSTERECTOMY) Hysterectomy: Yes Joint Replacement: Yes (RIGHT HIP X2) Oral Surgery: Yes (THYROIDECTOMY, TONSILS) Pacemaker: No Thoracic Surgery: No Tonsillectomy: Yes Other Surgery: Yes ("1985,thyroid and lymph glands removed", bunionectomy X 2) Social History Alcohol Use: Yes (2-3 OZ PER DAY) Tobacco Use: No (quit 2006,was smoking one pack of cigarettes a day) Substance Use: No Allergies-Medications (Allergen,Severity, Reaction): Coded Allergies: ibuprofen (Unverified Allergy, Severe, DIZZYNESS, 02/08/17) penicillin G (Unverified Allergy, Severe, HIVES, 02/08/17) naproxen (Unverified Adverse Reaction, Severe, DIZZY, 02/08/17) Reported Meds & Prescriptions Reported Meds & Active Scripts Active Hydrocodone-Acetaminophen 5-325 mg Tab 1 Tab PO Q4H PRN Reported Allopurinol 100 Mg Tab 100 Mg PO DAILY Hydralazine (Hydralazine HCl) 100 Mg Tab 25 Mg PO BID Take with meals Lasix (Furosemide) 40 Mg Tab 40 Mg PO DAILY Gabapentin 300 Mg Cap 300 Mg PO TID Simvastatin 40 Mg Tab 40 Mg PO HS Levothyroxine (Levothyroxine Sodium) 112 Mcg Tab 112 Mcg PO DAILY Tramadol (Tramadol HCl) 50 Mg Tab 100 Mg PO Q8HR PRN Review of Systems Except as stated in HPI: all other systems reviewed are Neg General / Constitutional: No: Fever, Chills Eyes: No: Visual changes HENT: No: Headaches Cardiovascular: Positive: Tachycardia, No: Chest Pain or Discomfort, Palpitations, Irregular Rhythm, Diaphoresis, Syncope, Dyspnea on exertion, Varicosities Respiratory: No: Shortness of Breath Gastrointestinal: No: Abdominal Pain Genitourinary: No: Dysuria Musculoskeletal: No: Pain Skin: No Rash Neurologic: No: Weakness Psychiatric: No: Depression Endocrine: No: Polydipsia Hematologic/Lymphatic: No: Easy Bruising Physical Exam Narrative GENERAL: Patient is alert and oriented 3 without obvious signs of distress. SKIN: Warm and dry. Normal color. Normal turgor. HEAD: Atraumatic. Normocephalic. EYES: Pupils equal and round. No scleral icterus. No injection or drainage. ENT: No nasal bleeding or discharge. Mucous membranes pink and moist. Pharynx is clear. Airway is patent. NECK: Trachea midline. Neck is supple and nontender. CARDIOVASCULAR: Tachycardic rate and normal rhythm. RESPIRATORY: No accessory muscle use. Clear to auscultation. Breath sounds equal bilaterally. GASTROINTESTINAL: Abdomen soft, non-tender, nondistended. Hepatic and splenic margins not palpable. MUSCULOSKELETAL: Extremities without clubbing, cyanosis, or edema. No obvious deformities. NEUROLOGICAL: Awake and alert. No obvious cranial nerve deficits. Motor grossly within normal limits. Five out of 5 muscle strength in the arms and legs. Normal speech. PSYCHIATRIC: Appropriate mood and affect; insight and judgment normal. Data Data Last Documented VS Vital Signs Date Time Temp Pulse Resp B/P (MAP) Pulse Ox O2 Delivery O2 Flow Rate FiO2 02/08/17 19:42 98 18 142/78 (99) 97 Room Air 02/08/17 14:26 98.2 Orders Orders Electrocardiogram (02/08/17 14:36) B-Type Natriuretic Peptide (02/08/17 14:36) Ckmb (Isoenzyme) Profile (02/08/17 14:36) Complete Blood Count With Diff (02/08/17 14:36) Magnesium (Mg) (02/08/17 14:36) Prothrombin Time / Inr (Pt) (02/08/17 14:36) Act Partial Throm Time (Ptt) (02/08/17 14:36) Troponin I (02/08/17 14:36) Chest, Single Ap (02/08/17 14:36) Ecg Monitoring (02/08/17 14:36) Bilateral Bp Monitoring (02/08/17 14:36) Iv Access Insert/Monitor (02/08/17 14:36) Oximetry (02/08/17 14:36) Oxygen Administration (02/08/17 14:36) Sodium Chloride 0.9% Flush (Ns Flush) (02/08/17 14:45) Vascular Access Team Consult/P PRN (02/08/17 14:42) Vascular Poc Ultrasound (02/08/17 ) Ct Pulmonary Angiogram (02/08/17 15:32) Comprehensive Metabolic Panel (02/08/17 15:10) Thyroid Stimulating Hormone (02/08/17 15:10) Iohexol 350 Inj (Omnipaque 350 Inj) (02/08/17 14:17) Labs Laboratory Tests Test 02/08/17 15:10 White Blood Count 7.4 TH/MM3 Red Blood Count 4.13 MIL/MM3 Hemoglobin 12.5 GM/DL Hematocrit 37.5 % Mean Corpuscular Volume 90.7 FL Mean Corpuscular Hemoglobin 30.2 PG Mean Corpuscular Hemoglobin Concent 33.3 % Red Cell Distribution Width 16.6 % Platelet Count 325 TH/MM3 Mean Platelet Volume 8.9 FL Neutrophils (%) (Auto) 73.2 % Lymphocytes (%) (Auto) 15.2 % Monocytes (%) (Auto) 8.5 % Eosinophils (%) (Auto) 2.0 % Basophils (%) (Auto) 1.1 % Neutrophils # (Auto) 5.8 TH/MM3 Lymphocytes # (Auto) 1.2 TH/MM3 Monocytes # (Auto) 0.7 TH/MM3 Eosinophils # (Auto) 0.2 TH/MM3 Basophils # (Auto) 0.1 TH/MM3 CBC Comment AUTO DIFF Differential Comment AUTO DIFF CONFIRMED Platelet Estimate NORMAL Platelet Morphology Comment CLUMPED Spherocytes OCC Prothrombin Time 10.3 SEC Prothromb Time International Ratio 0.9 RATIO Activated Partial Thromboplast Time 27.5 SEC Blood Urea Nitrogen 17 MG/DL Creatinine 0.73 MG/DL Random Glucose 81 MG/DL Total Protein 7.7 GM/DL Albumin 3.3 GM/DL Calcium Level 9.2 MG/DL Magnesium Level 2.2 MG/DL Alkaline Phosphatase 114 U/L Aspartate Amino Transf (AST/SGOT) 27 U/L Alanine Aminotransferase (ALT/SGPT) 18 U/L Total Bilirubin 0.4 MG/DL Sodium Level 140 MEQ/L Potassium Level 4.1 MEQ/L Chloride Level 104 MEQ/L Carbon Dioxide Level 23.8 MEQ/L Anion Gap 12 MEQ/L Estimat Glomerular Filtration Rate 77 ML/MIN Total Creatine Kinase 92 U/L Troponin I LESS THAN 0.02 NG/ML B-Type Natriuretic Peptide 215 PG/ML Thyroid Stimulating Hormone 3rd Gen 1.160 uIU/ML [facility] Medical Decision Making Medical Screen Exam Complete: Yes Emergency Medical Condition: Yes Medical Record Reviewed: Yes Differential Diagnosis Asymptomatic tachycardia. Electrolyte imbalance. Pulmonary embolism. Tumor. Thyroid issue. Narrative Course Patient is medically stable at time of exam. Labs are as previously ordered. Labs added are CMP and TSH. CTA is ordered to rule out PE or tumor. Coagulation studies are unremarkable. Chemistries are unremarkable. Troponin is less than 0.02. He is slightly elevated at 215. TSH is normal at 1.160. CBC was unremarkable for acute findings. Chest x-ray is unremarkable for acute process. There is COPD and cardiomegaly per radiologist. CT is negative for pulmonary emboli, and chronic interstitial disease and emphysematous changes noted. Patient is felt stable for discharge home. Patient should follow-up with her primary care physician or manager materials management as needed. Is to return to emergency department with any dyspnea chest pain or other worsening symptoms as discussed. Diagnosis Primary Impression: Intermittent palpitations Patient Instructions: General Instructions Additional Instructions: Coagulation studies are unremarkable. Chemistries are unremarkable. Troponin is less than 0.02. He is slightly elevated at 215. TSH is normal at 1.160. CBC was unremarkable for acute findings. Chest x-ray is unremarkable for acute process. There is COPD and cardiomegaly per radiologist. CT is negative for pulmonary emboli, and chronic interstitial disease and emphysematous changes noted. Patient is felt stable for discharge home. Patient should follow-up with her primary care physician or manager materials management as needed. Is to return to emergency department with any dyspnea chest pain or other worsening symptoms as discussed. Med/Other Pt SpecificInfo: No Change to Meds Disposition: 01 DISCHARGE HOME Condition: Stable Felix Bundy Feb 08, 2017 16:03
[2017-02-08 16:14] LABS: MAGNESIUM 2.2 MG/DL (1.5-2.5)
[2017-02-08 16:17] LABS: CREATINE KINASE 92 U/L (26-192)
[2017-02-08 16:39] LABS: ALKALINE PHOSPHATASE 114 U/L (45-117)
[2017-02-08 16:53] LABS: ALT (GPT) 18 U/L (10-53); ANION GAP 12 MEQ/L (5-15); AST (GOT) 27 U/L (15-37); BICARBONATE 23.8 MEQ/L (21.0-32.0); BLOOD UREA NITROGEN 17 MG/DL (7-18); CHLORIDE 104 MEQ/L (98-107); GLOMERULAR FILTRATION RATE 77 ML/MIN (>89); POTASSIUM 4.1 MEQ/L (3.5-5.1); SODIUM (NA) 140 MEQ/L (136-145); TOTAL BILIRUBIN ADULT 0.4 MG/DL (0.2-1.0)
--- NOTE | 2017-02-08 18:27 | RADRPT ---
EXAM DATE/TIME: 02/08/2017 17:53 [facility] COMPARISON: No previous studies available for comparison. INDICATIONS : Short of breath, embolism. IV CONTRAST: 64 cc Omnipaque 350 (iohexol) IV RADIATION DOSE: 12.94 CTDIvol (mGy) MEDICAL HISTORY : Chronic obstructive pulmonary disease. Hypertension. Carcinoma, breast.Cardiac, Thyroid cancer, Lymph node neck cancer. SURGICAL HISTORY : Tubal ligation. Hysterectomy. ENCOUNTER: Initial ACUITY: 1 day PAIN SCALE: 0/10 LOCATION: Bilateral cranial TECHNIQUE: Volumetric scanning of the chest was performed using a pulmonary embolism protocol MIP images were re constructed. Using automated exposure control and adjustment of the mA and/or kV according to patien t size, radiation dose was kept as low as reasonably achievable to obtain optimal diagnostic quality images. DICOM format image data is available electronically for review and comparison. Follow-up recommendations for detected pulmonary nodules are based at a minimum on nodule size and pa tient risk factors according to Fleischner Society Guidelines. FINDINGS: PULMONARY ARTERIES: No filling defects are seen in the pulmonary arteries through the segmental level. LUNGS: There is diffuse interstitial disease. There is scattered emphysematous change especially in the uppe r lungs. PLEURAE: There is no pleural thickening or pleural effusion. MEDIASTINUM: There is good visualization of the great vessels of the middle mediastinum. No evidence of mediastin al or hilar adenopathy/mass. Coronary artery calcifications are present. MUSCULOSKELETAL: Within normal limits for patient age. MISCELLANEOUS: The visualized upper abdominal organs demonstrate no acute abnormality. There is a 0.7 cm hypodensity in the superior aspect of the left lobe. This is nonspecific on the CTA of the chest. This likely re presents a cyst or hemangioma. CONCLUSION: 1. No pulmonary embolus. 2. Chronic interstitial disease and emphysematous change. Brian Hale MD on February 08, 2017 at 18:23 Board Certified Radiologist. This report was verified electronically.
[2017-02-08 19:42] VITALS: BP 142/78; PULSE 98; RESP 18; O2SAT 97
[2017-02-08 20:23] LABS: AUTOMATED NEUTROPHIL # 5.8 TH/MM3 (1.8-7.7); BASOPHIL # 0.1 TH/MM3 (0-0.2); BASOPHIL % 1.1 % (0.0-2.0); EOSINOPHIL # 0.2 TH/MM3 (0-0.4); HEMATOCRIT 37.5 % (35.0-46.0); HEMO FLAGS AUTO DIFF; LYMPH % 15.2 % (9.0-44.0); LYMPHOCYTE # 1.2 TH/MM3 (1.0-4.8); MEAN CELL VOLUME 90.7 FL (80.0-100.0); MEAN CORPUSCULAR HEMOGLOBIN 30.2 PG (27.0-34.0); MEAN CORPUSCULAR HGB CONC 33.3 % (32.0-36.0); MONO % 8.5 % (0.0-8.0); NEUT % 73.2 % (16.0-70.0); RED BLOOD COUNT 4.13 MIL/MM3 (4.00-5.30); RED CELL DISTRIBUTION WIDTH 16.6 % (11.6-17.2); WHITE BLOOD COUNT 7.4 TH/MM3 (4.0-11.0)
[2017-02-08 20:25] LABS: PLATELET COUNT 325 TH/MM3 (150-450)
[2017-02-08 20:26] LABS: PLATELET ESTIMATE SMEAR NORMAL (NORMAL); PLATELET MORPHOLOGY CLUMPED (NORMAL); SCAN/DIFF AUTO DIFF CONFIRMED; SPHEROCYTES OCC (NORMAL)
--- NOTE | 2017-02-09 16:33 | EKG ---
Date Performed: 02/08/2017 Time Performed: 14:53:54 PTAGE: 81 years EKG: SINUS TACHYCARDIA WITH FIRST DEGREE AV BLOCK AND PACs AND PVCs BORDERLINE LEFT AXIS DEVIATI ON Compared to previous tracing, the PACs and PVCs are new. ABNORMAL ECG PREVIOUS TRACING : 01/14/2017 20.55 DOCTOR: Lester Aly Interpretating Date/Time 02/09/2017 16:31:46
== END 2017-02-08 21:58 | disposition home or self-care (01) ==
LOC: NEPE 14:16
DX: R00.2 Palpitations (principal); R00.0 Tachycardia, unspecified; I44.0 Atrioventricular block, first degree; I49.3 Ventricular premature depolarization; R94.31 Abnormal electrocardiogram [ECG] [EKG]; J44.9 Chronic obstructive pulmonary disease, unspecified; I11.0 Hypertensive heart disease with heart failure; I50.9 Heart failure, unspecified; E78.00 Pure hypercholesterolemia, unspecified
CPT/HCPCS: 71010; 71275; 80053; 82550; 83735; 83880; 84443; 84484; 85025; 85610; 85730; 93005; 99285; Q9967

== ENCOUNTER → 2017-02-08 | Day surgery (SDC) | payer OTHER ==
[~2017-02-08] MED LIST changes: -AMLO5CAP PO; +CIPR250T52 PO; -CLIN1CAP5 PO; -DOXY100C PO; -DOXY1CAP74 PO; +HYDR-3801 PO; -HYDR25TA35 PO; +LISI40TA PO; -METO2.5T PO; -NORC5TAB PO; -ORPH100T99 PO; +ULOR40TA
== END | disposition home or self-care (01) ==
LOC: ESDC 11:15
PROVIDERS: ATTEND Surgery Trauma Surgery
DX: C50.912 Malignant neoplasm of unspecified site of left female breast (principal); Z01.810 Encounter for preprocedural cardiovascular examination
CPT/HCPCS: 93005; G0463; 99211

== ENCOUNTER → 2017-03-13 | Day surgery (SDC) | payer OTHER ==
[~2017-03-13] MED LIST changes: +ACETAMINOPHEN 1000 MG/100 ML 100 ML IV ONE; +ALLO100T PO; -CIPR250T52 PO; +LACTATED RINGER'S 1000 ML INJ 1,000 ML ONE; +LIDOCAINE 1%/EPINEPHrine 1:100,000 SOLN 30 ML VIAL ONE; -LISI40TA PO; +ONDANSETRON HCL 4 MG/2 ML VIAL IV PUSH ONE; +PROPOFOL 200 MG/20 ML AMP IV ONE; +RESP: ALBUTEROL 2.5 MG/3 ML NEB (SCH) ONE; +SODIUM CHLOR 0.9% 250 ML BAG IV ONE; -ULOR40TA; +VANCOMYCIN HCL 1000 MG VIAL ONE
--- NOTE | 2017-03-14 06:53 | MP ---
cc: CESAR JONES M.D., JON C. M.D. KHAN,SAI CALDWELL DATE OF SURGERY 03/13/2017 PROCEDURE Left breast needle-localized wide local excision. PREOPERATIVE DIAGNOSIS Invasive ductal carcinoma, left breast. POSTOPERATIVE DIAGNOSIS Invasive ductal carcinoma, left breast. ANESTHESIA LMA. SURGEON Chuy. ESTIMATED BLOOD LOSS 30 mL. FLUIDS 500 mL crystalloid. COMPLICATIONS None. DRAINS None. SPECIMEN Needle-localized left breast tissue to pathology. PROCEDURE IN DETAIL The patient was taken to the department of radiology where she underwent needle localization procedure. She was brought to the holding area where the left breast was marked by the undersigned and confirmed by the patient next to the cup that was in the breast. The patient was taken to the operating room and placed on the operating table in the supine position. After laryngeal mask anesthesia was instituted a timeout was taken confirming the correct patient, site and procedure to be performed. The breast was prepped and draped in a sterile fashion. Skin and subcutaneous tissue was infiltrated with local anesthetic and a radial incision made in the 5 o'clock position of the breast towards the needle. The needle was cut at the skin and brought into the wound. A core of tissue was removed including the needle and oriented with silk sutures. This was submitted for specimen radiograph. The radiologist contacted the undersigned before closure and confirmed that the lesion was present in the middle of the specimen. While awaiting radiologic confirmation hemostasis was achieved with electrocautery. With hemostasis achieved the wound was then closed in two layers with interrupted 3-0 Vicryl suture and 5-0 PDS in a running subcuticular fashion. The wound was dressed with Steri-Strips. The patient was taken back to the recovery room in stable condition. She tolerated the procedure well. MD ANTONIO Freitas/AURE /11:47 AM /6:41 AM
== END | disposition home or self-care (01) ==
LOC: ESDC 07:24
PROVIDERS: ATTEND Surgery Trauma Surgery
DX: D05.12 Intraductal carcinoma in situ of left breast (principal)
CPT/HCPCS: 00400; 19125; 88307; J0131; J2405; J3010; J3370; J7050; J7120; J7613